=== PATIENT | female | born 1990 | race Caucasian/White ===

== ENCOUNTER 2016-11-16 09:37 | Inpatient (IN) | payer OTHER ==
[2016-11-16] MEDS ORDERED: IBUPROFEN 800 MG TAB PO STA (10:00)
[2016-11-16] MEDS ORDERED: ACETAMINOPHEN TAB 500 MG TAB PO STA (10:00)
[2016-11-16] MEDS ORDERED: IPRATROPIUM-ALBUTEROL 3 ML NEB INHALATION STA (10:01)
[2016-11-16] MEDS ORDERED: methylPREDNISolone SOD SUCCI 125 MG/2 ML VIAL IV STA (10:01)
--- NOTE | 2016-11-16 10:16 | ED ---
Fever HPI - General Source: patient Mode of arrival: ambulatory Limitations: no limitations <Xavier Merlos - Last Filed: 11/16/16 12:25> <Erik Velasco - Last Filed: 11/16/16 12:37> - General Chief Complaint: Fever Stated Complaint: fever Time Seen by Provider: 11/16/16 09:52 - History of Present Illness Initial Comments: 26-year-old female patient presents to emergency department for evaluation after having a fever since Saturday. Reports fever as high as 104.2F at home. Patient states that she does have have a cough, but denies any nasal congestion , nasal discharge, or sore throat. Patient did see her physician on Saturday and was given a prescription for amoxicillin which she has been taking as prescribed. Patient reports shortness of breath with activity and with coughing episodes. Patient denies any sputum production. Patient denies any chest pain, back pain, dizziness, weakness, abdominal pain, nausea, vomiting, constipation, diarrhea, hematuria, dysuria, incontinence, frequency or urgency to urinate. Patient does take control pill, denies any sexual activity. Patient denies any recent travel. (Xavier Merlos) - Related Data Home Medications Medication Instructions Recorded Confirmed Amoxic-Pot Clav 500-125 mg 1 tab PO Q12HR 11/16/16 11/16/16 [Augmentin 500-125 mg] Control (Unknown) 1 tab PO DAILY 11/16/16 11/16/16 Promethaz-Cod 6.25-10 mg/5 ml 5 ml PO Q8H PRN 11/16/16 11/16/16 [Phenergan with Codeine] Allergies Allergy/AdvReac Type Severity Reaction Status Date / Time wheat Allergy Rash/Hives Verified 11/16/16 10:43 lactose AdvReac Nausea & Verified 11/16/16 10:43 Vomiting & Diarrhea Review of Systems ROS Other: All systems not noted in ROS Statement are negative. <Xavier Merlos - Last Filed: 11/16/16 12:25> ROS Other: All systems not noted in ROS Statement are negative. <Erik Velasco - Last Filed: 11/16/16 12:37> ROS Statement: Those systems with pertinent positive or pertinent negative responses have been documented in the HPI. Past Medical History Past Medical History: Asthma History of Any Multi-Drug Resistant Organisms: MRSA Date of last positivie culture/infection: 2007 MDRO Source:: r leg Past Surgical History: No Surgical Hx Reported Past Psychological History: No Psychological Hx Reported Smoking Status: Current every day smoker Past Alcohol Use History: None Reported Past Drug Use History: None Reported <ChelitaXavier Carrera - Last Filed: 11/16/16 12:25> General Exam Limitations: no limitations General appearance: alert, in no apparent distress Head exam: Present: atraumatic, normocephalic, normal inspection Eye exam: Present: normal appearance, PERRL, EOMI. Absent: scleral icterus, conjunctival injection, periorbital swelling ENT exam: Present: normal exam, normal oropharynx, mucous membranes moist, TM's normal bilaterally. Absent: mucous membranes dry Neck exam: Present: normal inspection. Absent: tenderness, meningismus, lymphadenopathy Respiratory exam: Present: normal lung sounds bilaterally, wheezes (Faint expiratory in all arita). Absent: respiratory distress, rales, rhonchi, stridor Cardiovascular Exam: Present: normal rhythm, tachycardia, normal heart sounds. Absent: regular rate, rubs, gallop, clicks GI/Abdominal exam: Present: soft, normal bowel sounds. Absent: distended, tenderness, guarding, rebound, rigid Extremities exam: Present: normal inspection, full ROM, normal capillary refill. Absent: tenderness, pedal edema, joint swelling, calf tenderness Back exam: Present: normal inspection. Absent: CVA tenderness (R), CVA tenderness (L) Neurological exam: Present: alert, oriented X3, CN II-XII intact Psychiatric exam: Present: normal affect, normal mood Skin exam: Present: warm, dry, intact, normal color. Absent: rash <Xavier Merlos - Last Filed: 11/16/16 12:25> General appearance: alert, in no apparent distress, anxious, obese Head exam: Present: atraumatic, normocephalic, normal inspection Eye exam: Present: normal appearance, PERRL, EOMI. Absent: scleral icterus, conjunctival injection, periorbital swelling ENT exam: Present: normal exam, mucous membranes moist Neck exam: Present: normal inspection. Absent: tenderness, meningismus, lymphadenopathy Respiratory exam: Present: normal lung sounds bilaterally, wheezes, accessory muscle use, decreased breath sounds, prolonged expiratory. Absent: respiratory distress, rales, rhonchi, stridor Cardiovascular Exam: Present: regular rate, normal rhythm, normal heart sounds. Absent: systolic murmur, diastolic murmur, rubs, gallop, clicks GI/Abdominal exam: Present: soft, normal bowel sounds. Absent: distended, tenderness, guarding, rebound, rigid Extremities exam: Present: normal inspection, full ROM, normal capillary refill. Absent: tenderness, pedal edema, joint swelling, calf tenderness Back exam: Present: normal inspection Neurological exam: Present: alert, oriented X3, CN II-XII intact Psychiatric exam: Present: normal affect, normal mood Skin exam: Present: warm, dry, intact, normal color. Absent: rash <Erik Velasco - Last Filed: 11/16/16 12:37> Course <Xavier Merlos - Last Filed: 11/16/16 12:25> <Eirk Velasco - Last Filed: 11/16/16 12:37> Vital Signs 11/16/16 11/16/16 11/16/16 09:43 10:30 10:50 Temperature 102.9 F H Pulse Rate 131 H 98 Respiratory 18 20 20 Rate Blood Pressure 126/76 134/71 O2 Sat by Pulse 91 L 94 L Oximetry 11/16/16 11/16/16 11/16/16 11:04 11:14 12:19 Temperature 99.0 F Pulse Rate 96 96 95 Respiratory 18 Rate Blood Pressure 115/55 O2 Sat by Pulse 96 Oximetry - Reevaluation(s) Reevaluation #1: 11/16/16 12:36 Patient with mild to minimal improvement after breathing treatment (Erik Velasco) Medical Decision Making - Lab Data Result diagrams: 11/16/16 10:40 11/16/16 10:40 <Xavier Merlos - Last Filed: 11/16/16 12:25> - Lab Data Result diagrams: 11/16/16 10:40 11/16/16 10:40 <Erik Velasco - Last Filed: 11/16/16 12:37> - Medical Decision Making 26-year-old here for evaluation of shortness of breath, severe shortness of breath positive pneumonia fever tachycardia history of asthma palpitating history of shortness of breath pulse ox marginal 91% with multilobar pneumonia ( Erik Velasco) - Lab Data Lab Results 11/16/16 11/16/16 11/16/16 Range/Units 10:40 10:40 10:40 WBC 6.5 (3.8-10.6) k/uL RBC 4.92 (3.80-5.40) m/uL Hgb 14.1 (11.4-16.0) gm/dL Hct 42.4 (34.0-46.0) % MCV 86.1 (80.0-100.0) fL MCH 28.7 (25.0-35.0) pg MCHC 33.3 (31.0-37.0) g/dL RDW 13.8 (11.5-15.5) % Plt Count 113 L (150-450) k/uL Neutrophils % 79 % Lymphocytes % 15 % Monocytes % 4 % Eosinophils % 0 % Basophils % 0 % Neutrophils # 5.1 (1.3-7.7) k/uL Lymphocytes # 0.9 L (1.0-4.8) k/uL Monocytes # 0.3 (0-1.0) k/uL Eosinophils # 0.0 (0-0.7) k/uL Basophils # 0.0 (0-0.2) k/uL D-Dimer 0.61 H (<0.60) mg/L FEU Sodium 137 (137-145) mmol/L Potassium 4.4 (3.5-5.1) mmol/L Chloride 103 (98-107) mmol/L Carbon Dioxide 21 L (22-30) mmol/L Anion Gap 13 mmol/L BUN 9 (7-17) mg/dL Creatinine 0.82 (0.52-1.04) mg/dL Est GFR (MDRD) Af Amer >60 (>60 ml/min/1.73 sqM) Est GFR (MDRD) Non-Af >60 (>60 ml/min/1.73 sqM) Glucose 137 H (74-99) mg/dL Plasma Lactic Acid Walt (0.7-2.0) mmol/L Calcium 8.4 (8.4-10.2) mg/dL Total Bilirubin 0.6 (0.2-1.3) mg/dL AST 71 H (14-36) U/L ALT 63 H (9-52) U/L Alkaline Phosphatase 46 (38-126) U/L Total Protein 6.5 (6.3-8.2) g/dL Albumin 3.5 (3.5-5.0) g/dL HCG, Qual Influenza Type A RNA (Not Detectd) Influenza Type B (PCR) (Not Detectd) 11/16/16 11/16/16 11/16/16 Range/Units 10:40 10:40 10:40 WBC (3.8-10.6) k/uL RBC (3.80-5.40) m/uL Hgb (11.4-16.0) gm/dL Hct (34.0-46.0) % MCV (80.0-100.0) fL MCH (25.0-35.0) pg MCHC (31.0-37.0) g/dL RDW (11.5-15.5) % Plt Count (150-450) k/uL Neutrophils % % Lymphocytes % % Monocytes % % Eosinophils % % Basophils % % Neutrophils # (1.3-7.7) k/uL Lymphocytes # (1.0-4.8) k/uL Monocytes # (0-1.0) k/uL Eosinophils # (0-0.7) k/uL Basophils # (0-0.2) k/uL D-Dimer (<0.60) mg/L FEU Sodium (137-145) mmol/L Potassium (3.5-5.1) mmol/L Chloride (98-107) mmol/L Carbon Dioxide (22-30) mmol/L Anion Gap mmol/L BUN (7-17) mg/dL Creatinine (0.52-1.04) mg/dL Est GFR (MDRD) Af Amer (>60 ml/min/1.73 sqM) Est GFR (MDRD) Non-Af (>60 ml/min/1.73 sqM) Glucose (74-99) mg/dL Plasma Lactic Acid Walt 0.8 (0.7-2.0) mmol/L Calcium (8.4-10.2) mg/dL Total Bilirubin (0.2-1.3) mg/dL AST (14-36) U/L ALT (9-52) U/L Alkaline Phosphatase (38-126) U/L Total Protein (6.3-8.2) g/dL Albumin (3.5-5.0) g/dL HCG, Qual Not Detected Influenza Type A RNA Not Detected (Not Detectd) Influenza Type B (PCR) Not Detected (Not Detectd) Disposition Time of Disposition: 12:26 <Xavier Merlos - Last Filed: 11/16/16 12:25> <Erik Velasco - Last Filed: 11/16/16 12:37> Clinical Impression: Multifocal pneumonia Disposition: ADMITTED IP TO THIS HOSP Condition: Fair Referrals: Ruthy Bundy MD [Primary Care Provider] - 1-2 days
--- NOTE | 2016-11-16 10:33 | XR ---
EXAMINATION TYPE: XR chest 2V DATE OF EXAM: 11/16/2016 10:20 AM COMPARISON: Prior exam one January 2016 HISTORY: Cough TECHNIQUE: Frontal and lateral views of the chest are obtained. FINDINGS: Multifocal airspace disease present. Cardiomediastinal silhouette, pulmonary vascularity a nd nelson are stable. No pneumothorax or pleural effusion. IMPRESSION: Findings may represent bilobar arch right lobar pneumonia, follow-up to resolution.
[2016-11-16] MEDS ORDERED: SODIUM CHLORIDE 0.9% 1,000 ML IV ONE (10:43)
[2016-11-16] MEDS ORDERED: AZITHROMYCIN 500 MG in SODIUM CHLORIDE 0.9% 250 ML IVPB STA (10:44)
[2016-11-16 10:57] LABS: Basophils % (A) 0 %; CH 28.9; CHCM 33.7; Eosinophils % (A) 0 %; HCT 42.4 % (34.0-46.0); HGB 14.1 gm/dL (11.4-16.0); Luc # (Auto) 0.11; Luc % (Auto) 2; Lymphocytes # (A) 0.9 k/uL (1.0-4.8); Lymphocytes % (A) 15 %; MCH 28.7 pg (25.0-35.0); MCHC 33.3 g/dL (31.0-37.0); MCV 86.1 fL (80.0-100.0); Mean Platelet Volume 7.6; Monocytes # (A) 0.3 k/uL (0-1.0); Monocytes % (A) 4 %; Neutrophils # (A) 5.1 k/uL (1.3-7.7); Neutrophils % (A) 79 %; RBC 4.92 m/uL (3.80-5.40); RDW 13.8 % (11.5-15.5); WBC 6.5 k/uL (3.8-10.6); WBC (Perox) 6.66
[2016-11-16 11:11] LABS: Anion Gap 13 mmol/L; Calcium 8.4 mg/dL (8.4-10.2); Carbon Dioxide 21 mmol/L (22-30); Chloride 103 mmol/L (98-107); Glucose 137 mg/dL (74-99); Non-African American GFR(MDRD) >60 (>60 ml/min/1.73 sqM); Sodium 137 mmol/L (137-145); Total Bilirubin 0.6 mg/dL (0.2-1.3); Total Protein 6.5 g/dL (6.3-8.2)
[2016-11-16 11:14] LABS: ALT 63 U/L (9-52); AST 71 U/L (14-36); Alkaline Phosphatase 46 U/L (38-126); Blood Urea Nitrogen 9 mg/dL (7-17); Potassium 4.4 mmol/L (3.5-5.1)
[2016-11-16] MEDS ORDERED: RX INFO: IV CONTRAST WAS GIVEN 1 EACH MISC MISCELLANE PRN ×2 (11:38→11:39)
[2016-11-16] MEDS: SODIUM CHLORIDE 0.9% 1,000 ML IV SCH ×2 (12:21→17:15)
--- NOTE | 2016-11-16 12:22 | CT ---
EXAMINATION TYPE: CT angio chest DATE OF EXAM: 11/16/2016 12:13 PM COMPARISON: Chest x-ray from earlier today. HISTORY: Fever and pain. CT DLP: 886.4 mGycm. Automated Exposure Control for Dose Reduction was Utilized. CONTRAST: CTA scan of the thorax is performed with IV Contrast, patient injected with 100 mL of Omnipaque 350, pulmonary embolism protocol. MIP Images are created on CT scanner and reviewed. FINDINGS: LUNGS: There is groundglass opacification with some irregular consolidation in the right upper lobe w ith additional multifocal areas of similar appearance in the left upper lobe as well as involving the lingula. There is more dense consolidation with air bronchograms medially in the left lower lobe. Th ere is more patchy reticulonodular infiltrates in the central right lower lobe. No pleural effusion o r pneumothorax is present bilaterally. MEDIASTINUM: There is suboptimal bolus with heterogeneity beginning in the distal right and left pulm onary arteries. There is no large central pulmonary embolism. Smaller segmental and subsegmental PE c annot be excluded by this exam but is likely negative. There are no greater than 1 cm hilar or media stinal lymph nodes. No cardiomegaly or pericardial effusion is seen. OTHER: Liver is diffusely low dense consistent with fatty infiltration. There is mild multilevel spur ring in the mid to lower thoracic spine. IMPRESSION: 1. Suboptimal study without large central pulmonary embolism. Smaller peripheral PE cannot be entirel y excluded on this exam though is likely negative. 2. Multifocal abnormal areas correlate with recent chest x-ray strongly suggestive of multifocal pneu monia more prominent in the left lung versus right lung. Clinical correlation advised.
[2016-11-16] MEDS ORDERED: PNEUMONIA PROTOCOL UTILIZED 1 EACH MISC PO PRN (12:27)
[2016-11-16] MEDS ORDERED: ACETAMINOPHEN TAB 500 MG TAB PO PRN (12:29)
--- NOTE | 2016-11-16 15:07 | P.HPIM ---
History of Present Illness H&P Date: 11/16/16 Chief Complaint: fever and cough patient is a 26-year-old female who presented to [facility] emergency room was a chief complaint of fever and cough. Patient reports fever as high as 104.2 she was seen by her primary care physician as outpatient 4 days ago and was given a prescription for amoxicillin which she has been taking however of she was having worsening shortness of breath and worsening cough episodes she decided to come to emergency room. Chest x-ray on presentation was significant for multifocal infiltrate suggestive of pneumonia, d-dimer was slightly elevated CT angiogram of the chest was done and was negative for any evidence of the large of pulmonary embolism. Preliminary diagnosis is pneumonia patient was started on IV Rocephin and IV Zithromax, sputum culture was requested. Patient also has known history of asthma she was started on IV Solu-Medrol and inhaled bronchodilators Pulmonary consultation was requested. Past Medical History Past Medical History: Asthma Additional Past Medical History / Comment(s): Gestational Diabetes History of Any Multi-Drug Resistant Organisms: MRSA Date of last positivie culture/infection: 2007 MDRO Source:: r leg Past Surgical History: Section Additional Past Surgical History / Comment(s): Third Molar Removal Past Anesthesia/Blood Transfusion Reactions: No Reported Reaction Past Psychological History: ADD/ADHD Smoking Status: Former smoker Past Alcohol Use History: None Reported Past Drug Use History: None Reported - Past Family History Mother Family Medical History: Diabetes Mellitus Sister(s) Additional Family Medical History / Comment(s): Heart Murmur Medications and Allergies Home Medications Medication Instructions Recorded Confirmed Type Amoxic-Pot Clav 500-125 mg 1 tab PO Q12HR 11/16/16 11/16/16 History [Augmentin 500-125 mg] Control (Unknown) 1 tab PO DAILY 11/16/16 11/16/16 History Promethaz-Cod 6.25-10 mg/5 ml 5 ml PO Q8H PRN 11/16/16 11/16/16 History [Phenergan with Codeine] Allergies Allergy/AdvReac Type Severity Reaction Status Date / Time wheat Allergy Rash/Hives Verified 11/16/16 10:43 lactose AdvReac Nausea & Verified 11/16/16 10:43 Vomiting & Diarrhea Physical Exam Vitals: Vital Signs Temp Pulse Pulse Resp BP BP Pulse Ox 11/16/16 14:12 98.1 F 92 18 103/56 95 11/16/16 13:47 98.6 F 109 H 18 106/58 96 Intake and Output 11/16/16 11/16/16 11/16/16 06:59 14:59 22:59 Other: Weight 157.652 kg Patient Weight 11/17/16 06:59 Weight 157.652 kg in general patient is alert and oriented 3 in no apparent distress HEENT head normocephalic and traumatic Neck is supple no JVD no goiter no lymphadenopathy Chest exam reveals scattered crackles in both lung arita with prolonged expiratory phase and wheezing Cardiac exam reveals regular heart sounds S1 and S2 no gallops no murmurs Abdomen is soft nontender no organomegaly Extremity exam reveals no edema no cyanosis or clubbing Results CBC & Chem 7: 11/16/16 10:40 11/16/16 10:40 Thrombosis Risk Factor Assmnt - Choose All That Apply Each Factor Represents 1 point: Obesity (BMI >25), Oral contraceptives or hormone replacement therapy, Serious lung disease incl. pneumonia (< 1month) Thrombosis Risk Factor Assessment Total Risk Factor Score: 3 Thrombosis Risk Factor Assessment Level: Moderate Risk Assessment and Plan Plan: #1 multifocal pneumonia #2 acute exacerbation of asthma #3 febrile illness related to #1 #4 elevated d-dimer was negative computed tomography scan for pulmonary embolism #5 borderline diabetes mellitus her recent A1c was 6.4 #6 morbid obesity At this time plan is to continue his IV antibiotic Rocephin and Zithromax continue with IV Solu-Medrol and inhaled bronchodilators Check sputum culture and Gram stain Will follow closely
[2016-11-16] MEDS: IPRATROPIUM-ALBUTEROL 3 ML NEB INHALATION SCH ×2 (15:45→21:34)
[2016-11-16 15:48] LABS: Hemoglobin A1C 6.2 % (4.2-6.1)
[2016-11-16] MEDS ORDERED: IV VANCOMYCIN PER PHARMACY 1 EACH MISC MISCELLANE PRN (16:10)
--- NOTE | 2016-11-16 16:40 | P.CNPUL ---
History of Present Illness Consult date: 11/16/16 Requesting physician: Palmer Pinzon Reason for consult: dyspnea, abnormal CXR/CT (Multifocal pneumonia) Chief complaint: Shortness of breath, cough congestion History of present illness: This is a very pleasant 26-year-old female patient who follows with Dr. Bundy as her primary care physician. She has a history of very mild intermittent asthma not currently on any inhalers, obesity, previous MRSA infection of a right leg wound in 2007. She does have chronic and ongoing tobacco dependence. She is also 16 month post . She is currently on control pills. Approximately 5 days ago she woke up feeling short of breath with cough and congestion. She was seen the following day at her PCPs office and was initiated on Augmentin and Robitussin. She did not improve and presented to the emergency room today with continued complaints of fever cough and congestion stating her temperature was as high as 104.2 at home. Her influenza screen is negative, hCG negative lactic acid 0.8, no leukocytosis. There is minimal elevation in her liver function testing with an AST of 71, ALT 63. Her d-dimer was 0.61. Her chest x-ray showed multilobar pneumonia bilaterally. CT angiogram ruled out pulmonary embolism and the large central pulmonary arteries however it was a suboptimal study and smaller PEs could not be completely excluded. There was fatty infiltration of the liver. There was noted multifocal abnormalities suggestive of multifocal pneumonia more prominent in the left lung versus the right. We're consulted for the same. She denies any recent travels, no noted exposures. She states she was in her normal state of health prior to this episode. She denies any productive cough, no hemoptysis. No recent weight loss. Review of Systems 14 point review of system was conducted. All negative other than as mentioned in the HPI. Past Medical History Past Medical History: Asthma Additional Past Medical History / Comment(s): Gestational Diabetes History of Any Multi-Drug Resistant Organisms: MRSA Date of last positivie culture/infection: 2007 MDRO Source:: r leg Past Surgical History: Section Additional Past Surgical History / Comment(s): Third Molar Removal Past Anesthesia/Blood Transfusion Reactions: No Reported Reaction Past Psychological History: ADD/ADHD Smoking Status: Former smoker Past Alcohol Use History: None Reported Past Drug Use History: None Reported - Past Family History Mother Family Medical History: Diabetes Mellitus Sister(s) Additional Family Medical History / Comment(s): Heart Murmur Medications and Allergies Home Medications Medication Instructions Recorded Confirmed Type Amoxic-Pot Clav 500-125 mg 1 tab PO Q12HR 11/16/16 11/16/16 History [Augmentin 500-125 mg] Control (Unknown) 1 tab PO DAILY 11/16/16 11/16/16 History Promethaz-Cod 6.25-10 mg/5 ml 5 ml PO Q8H PRN 11/16/16 11/16/16 History [Phenergan with Codeine] Allergies Allergy/AdvReac Type Severity Reaction Status Date / Time wheat Allergy Rash/Hives Verified 11/16/16 10:43 lactose AdvReac Nausea & Verified 11/16/16 10:43 Vomiting & Diarrhea Physical Exam Vitals: Vital Signs Temp Pulse Pulse Resp BP BP Pulse Ox 11/16/16 15:55 97 11/16/16 15:46 97 97 11/16/16 15:05 95 11/16/16 14:12 98.1 F 92 18 103/56 95 11/16/16 13:47 98.6 F 109 H 18 106/58 96 Intake and Output 11/16/16 11/16/16 11/16/16 06:59 14:59 22:59 Other: # Voids 1 Weight 157.652 kg Patient Weight 11/17/16 06:59 Weight 157.652 kg GENERAL EXAM: Morbidly obese. Alert, comfortable in no apparent distress. HEAD: Normocephalic. EYES: Normal reaction of pupils, equal size. NOSE: Clear with pink turbinates. THROAT: No erythema or exudates. NECK: No masses, no JVD. CHEST: No chest wall deformity. LUNGS: Equal air entry with faint end expiratory wheeze, few scattered rhonchi.. CVS: S1 and S2 normal with no audible murmurs, regular rhythm. ABDOMEN: No hepatosplenomegaly, normal bowel sounds, no guarding or rigidity. SPINE: No scoliosis or deformity SKIN: No rashes CENTRAL NERVOUS SYSTEM: No focal deficits, tone is normal in all 4 extremities. Extremities: There is no significant peripheral edema. No clubbing, no cyanosis. Peripheral pulses are intact. Results - Laboratory Findings CBC and BMP: 11/16/16 10:40 11/16/16 10:40 PT/INR, D-dimer D-Dimer 0.61 mg/L FEU (<0.60) H 11/16/16 10:40 - Diagnostic Findings Chest x-ray: image reviewed CT scan - chest: image reviewed Assessment and Plan Plan: Impression: #1 Multifocal pneumonia bilaterally more so on the left suspect community- acquired. #2 Acute exacerbation of mild intermittent bronchial asthma secondary to above. #3 Chronic and ongoing tobacco dependence. #4 Morbid obesity. #5 Utilizes control pills. Plan: The patient was seen and evaluated by Dr. Begum. Her chest x-ray and CAT scans were reviewed. We'll change her antibiotics and discontinue the Rocephin and azithromycin and initiate vancomycin and Levaquin. We'll back off on her steroids to 40 mg every 8 hours. We'll continue with bronchodilators. We will repeat her chest x-ray in the a.m. Currently her clinical appearance is much more stable than her x-ray/CT would suggest. We'll continue to monitor her closely. We'll continue to follow and make further recommendations based on her clinical status. Time with Patient: Greater than 30
[2016-11-16] MEDS: VANCOMYCIN 2,250 MG in SODIUM CHLORIDE 0.9% 500 ML IVPB SCH (17:21)
[2016-11-16] MEDS: LEVOFLOXACIN 750 MG TAB PO SCH (17:21)
[2016-11-16 17:35] LABS: Glucose,Whole Blood 151 mg/dL (75-99)
[2016-11-16] MEDS: INSULIN LISPRO (humaLOG) 300 UNIT/3 ML VIAL SQ SCH ×2 (17:38→22:06)
[2016-11-16] MEDS ORDERED: methylPREDNISolone SOD SUCCI 125 MG/2 ML VIAL IV SCH (18:00)
[2016-11-16 21:06] LABS: Glucose,Whole Blood 182 mg/dL (75-99)
[2016-11-17] MEDS: methylPREDNISolone SOD SUCCI 40 MG/ML 1 ML VIAL IV SCH ×4 (00:32→23:19)
[2016-11-17] MEDS: VANCOMYCIN 2,250 MG in SODIUM CHLORIDE 0.9% 500 ML IVPB SCH ×4 (00:32→23:19)
[2016-11-17] MEDS: IBUPROFEN 800 MG TAB PO PRN ×2 (01:18→23:19)
[2016-11-17 07:30] LABS: Glucose,Whole Blood 165 mg/dL (75-99)
[2016-11-17] MEDS: INSULIN LISPRO (humaLOG) 300 UNIT/3 ML VIAL SQ SCH ×4 (08:19→22:00)
[2016-11-17] MEDS ORDERED: AZITHROMYCIN 500 MG TAB PO SCH (09:00)
--- NOTE | 2016-11-17 10:14 | P.PN ---
Subjective 26-year-old female being seen on rounds. Currently sitting up in a chair. Patient states she slept well last night but she needed to sleep in a recliner. Patient stated that she did not cough last night but continues to report having lower back discomfort. Patients being followed by pulmonology service for multifocal infiltrate suggestive of pneumonia Bilaterally more so on the left suspect community- acquired D-dimer was slightly elevated and the CAT scan of the chest was negative for any evidence of a large pulmonary emboli. Patient does have a history of asthma currently being treated for an acute exacerbation of mild intermittent bronchial asthma secondary to multifocal bilateral pneumonia Objective - Vital Signs Vital signs: Vital Signs Temp 97.1 F L 11/17/16 07:30 Pulse 70 11/17/16 07:30 Resp 20 11/17/16 08:00 BP 115/83 11/16/16 20:31 Pulse Ox 94 L 11/17/16 07:30 Intake & Output 11/16/16 11/17/16 11/17/16 18:59 06:59 18:59 Output Total 600 375 Balance -600 -375 Weight 157.652 kg Output: Urine 600 375 Other: # Voids 1 1 - Exam Physical exam 26-year-old female sitting up in a chair appears in no acute distress states less short of breath Lungs diminished at the bases otherwise adequate air movement not able to appreciate any wheezing no cough noted Heart S1-S2 audible regular Abdomen obese soft nontender reports no nausea vomiting Extremities no calf tenderness no edema noted - Labs CBC & Chem 7: 11/16/16 10:40 11/16/16 10:40 Labs: Abnormal Lab Results - Last 24 Hours (Table) 11/16/16 11/16/16 11/17/16 Range/Units 17:33 21:01 07:23 POC Glucose (mg/dL) 151 H 182 H 165 H (75-99) mg/dL Microbiology - Last 24 Hours (Table) 11/16/16 19:00 Gram Stain - Preliminary Sputum Sputum Culture - Preliminary Assessment and Plan Plan: Impression present on admission shortness of breath suspect due to multifocal pneumonia bilaterally more on the left suspect community-acquired Acute exacerbation of mild intermittent bronchial asthma likely due to multifocal pneumonia Morbid obesity BMI 56 Chronic and ongoing tobacco dependency Present on admission febrile related to multifocal pneumonia likely community- acquired Elevated d-dimer negative CAT scan of the chest for pulmonary emboli Borderline diabetes recent A1 C 6.4 Plan Continue recommendations by pulmonology service DVT and GI prophylaxis Continue current aerosol bronchodilators Continue Levaquin and vancomycin as ordered Continue Solu-Medrol 40 IV every 8 Further recommendations pending The above dictated assessment and findings were discussed with dr rasmussen . Impression and the plan of care have been dictated as directed. Geni Lei nurse practitioner acting as a scribe for dr rasmussen
--- NOTE | 2016-11-17 11:00 | P.PN ---
Subjective Principal diagnosis: Acute bilateral multifocal pneumonia This is a very pleasant 26-year-old female patient who follows with Dr. Bundy as her primary care physician. She has a history of very mild intermittent asthma not currently on any inhalers, obesity, previous MRSA infection of a right leg wound in 2007. She does have chronic and ongoing tobacco dependence. She is also 16 month post . She is currently on control pills. Approximately 5 days ago she woke up feeling short of breath with cough and congestion. She was seen the following day at her PCPs office and was initiated on Augmentin and Robitussin. She did not improve and presented to the emergency room today with continued complaints of fever cough and congestion stating her temperature was as high as 104.2 at home. Her influenza screen is negative, hCG negative lactic acid 0.8, no leukocytosis. There is minimal elevation in her liver function testing with an AST of 71, ALT 63. Her d-dimer was 0.61. Her chest x-ray showed multilobar pneumonia bilaterally. CT angiogram ruled out pulmonary embolism and the large central pulmonary arteries however it was a suboptimal study and smaller PEs could not be completely excluded. There was fatty infiltration of the liver. There was noted multifocal abnormalities suggestive of multifocal pneumonia more prominent in the left lung versus the right. We're consulted for the same. She denies any recent travels, no noted exposures. She states she was in her normal state of health prior to this episode. She denies any productive cough, no hemoptysis. No recent weight loss. Patient was reevaluated today on 11/17/2016, she seems to be doing better, breathing easier, no cough no wheezing no shortness of breath. She did have a T -max of 102 yesterday, today her temp is 97.1. O2 saturation is 94% on room air , patient is not in any distress. Labs from yesterday were reviewed, and her WBC count is 6.5. Objective - Vital Signs Vital signs: Vital Signs Temp 97.1 F L 11/17/16 07:30 Pulse 70 11/17/16 07:30 Resp 20 11/17/16 08:00 BP 115/83 11/16/16 20:31 Pulse Ox 94 L 11/17/16 07:30 Intake & Output 11/16/16 11/17/16 11/17/16 18:59 06:59 18:59 Output Total 600 375 Balance -600 -375 Weight 157.652 kg Output: Urine 600 375 Other: # Voids 1 1 - Exam GENERAL EXAM: Morbidly obese. Alert, comfortable in no apparent distress. HEAD: Normocephalic. EYES: Normal reaction of pupils, equal size. NOSE: Clear with pink turbinates. THROAT: No erythema or exudates. NECK: No masses, no JVD. CHEST: No chest wall deformity. LUNGS: Equal air entry with faint end expiratory wheeze, few scattered rhonchi.. CVS: S1 and S2 normal with no audible murmurs, regular rhythm. ABDOMEN: No hepatosplenomegaly, normal bowel sounds, no guarding or rigidity. SPINE: No scoliosis or deformity SKIN: No rashes CENTRAL NERVOUS SYSTEM: No focal deficits, tone is normal in all 4 extremities. Extremities: There is no significant peripheral edema. No clubbing, no cyanosis. Peripheral pulses are intact. - Labs CBC & Chem 7: 11/16/16 10:40 11/16/16 10:40 Labs: Abnormal Lab Results - Last 24 Hours (Table) 11/16/16 11/16/16 11/17/16 Range/Units 17:33 21:01 07:23 POC Glucose (mg/dL) 151 H 182 H 165 H (75-99) mg/dL Microbiology - Last 24 Hours (Table) 11/16/16 19:00 Gram Stain - Preliminary Sputum Sputum Culture - Preliminary Assessment and Plan Plan: #1 Multifocal pneumonia bilaterally more so on the left suspect community- acquired. #2 Acute exacerbation of mild intermittent bronchial asthma secondary to above. #3 Chronic and ongoing tobacco dependence. #4 Morbid obesity. #5 Utilizes control pills. Recommendation: Continue present treatment plan including antibiotics, bronchodilators, patient is on Levaquin and vancomycin for now, this will be addressed depending on any positive cultures if become available. Repeat chest x-ray on Saturday, and consider discharge planning on Saturday. Time with Patient: Less than 30
--- NOTE | 2016-11-17 11:17 | XR ---
EXAMINATION TYPE: XR chest 2V DATE OF EXAM: 11/17/2016 10:59 AM HISTORY: pneumonia. REFERENCE: Previous study dated 11/16/2016. FINDINGS: There continues to be airspace disease in the left and right upper lobes. This has partiall y cleared. Heart size is upper limits of normal. No definite pleural fluid is seen. IMPRESSION: PARTIAL RESOLUTION OF THE PATIENT'S BILATERAL INFILTRATES. FURTHER FOLLOW-UP IS RECOMMENDED.
[2016-11-17] MEDS: IPRATROPIUM-ALBUTEROL 3 ML NEB INHALATION SCH ×4 (11:24→19:21)
[2016-11-17] MEDS: HEPARIN SODIUM,PORCINE 5,000 UNIT/ML 1 ML VIAL SQ SCH ×3 (12:14→23:19)
[2016-11-17 12:17] LABS: Glucose,Whole Blood 226 mg/dL (75-99)
[2016-11-17] MEDS: SODIUM CHLORIDE 0.9% 1,000 ML IV SCH ×2 (12:29→23:27)
[2016-11-17] MEDS ORDERED: VANCOMYCIN TROUGH DUE 1 EACH MISC MISCELLANE ONE (15:00)
[2016-11-17 17:03] LABS: Glucose,Whole Blood 344 mg/dL (75-99)
[2016-11-17] MEDS ORDERED: INSULIN LISPRO (humaLOG) 300 UNIT/3 ML VIAL SQ ONE (17:18)
[2016-11-17] MEDS: LEVOFLOXACIN 750 MG TAB PO SCH (18:32)
[2016-11-17 21:22] LABS: Glucose,Whole Blood 269 mg/dL (75-99)
[2016-11-17] MEDS: FAMOTIDINE 20 MG TAB PO SCH (21:23)
[2016-11-18] MEDS: SODIUM CHLORIDE 0.9% 1,000 ML IV SCH ×3 (03:05→23:33)
[2016-11-18 07:48] LABS: Glucose,Whole Blood 224 mg/dL (75-99)
[2016-11-18] MEDS: VANCOMYCIN 2,250 MG in SODIUM CHLORIDE 0.9% 500 ML IVPB SCH ×3 (08:37→23:32)
[2016-11-18] MEDS: methylPREDNISolone SOD SUCCI 40 MG/ML 1 ML VIAL IV SCH ×2 (08:42→22:01)
[2016-11-18] MEDS: HEPARIN SODIUM,PORCINE 5,000 UNIT/ML 1 ML VIAL SQ SCH ×3 (08:45→23:33)
[2016-11-18] MEDS: INSULIN LISPRO (humaLOG) 300 UNIT/3 ML VIAL SQ SCH ×4 (08:47→22:05)
[2016-11-18] MEDS: IPRATROPIUM-ALBUTEROL 3 ML NEB INHALATION SCH ×4 (08:49→19:58)
--- NOTE | 2016-11-18 10:36 | P.PN ---
Subjective 26-year-old female being seen this morning sitting up in a chair states breathing feels improved currently is on room air. Patient states that she was able to sleep last night in the bed laying flat less short of breath did note the temp this morning is 97.4 did run a temp of 100.1 at 11:00 last night patients being followed by pulmonology being treated for acute bilateral multifocal pneumonia. Patient did have a CAT scan of the chest ruled out for evidence of a pulmonary emboli Objective - Vital Signs Vital signs: Vital Signs Temp 97.4 F L 11/18/16 07:35 Pulse 96 11/18/16 09:04 Resp 20 11/18/16 07:35 BP 126/69 11/18/16 07:35 Pulse Ox 92 L 11/18/16 07:35 Intake & Output 11/17/16 11/18/16 11/18/16 18:59 06:59 18:59 Intake Total 300 Output Total 775 Balance -475 Intake: Oral 300 Output: Urine 775 Other: # Voids 1 1 1 # Bowel Movements 1 - Exam Physical exam 26-year-old female sitting up in a chair states breathing feels slightly improved this morning able to sleep flat in the bed last night Lungs adequate air movement bilaterally not able to appreciate any wheezing no conversational dyspnea noted no cough noted on room air sats are 92% Heart S1-S2 audible and regular denying chest pain Abdomen obese soft nondistended nontender bowel tones present Extremities no edema noted - Labs CBC & Chem 7: 11/16/16 10:40 11/16/16 10:40 Labs: Abnormal Lab Results - Last 24 Hours (Table) 11/17/16 11/17/16 11/17/16 Range/Units 12:08 16:56 21:21 POC Glucose (mg/dL) 226 H 344 H 269 H (75-99) mg/dL 11/18/16 Range/Units 07:40 POC Glucose (mg/dL) 224 H (75-99) mg/dL Assessment and Plan Plan: Impression present on admission shortness of breath suspect due to multifocal pneumonia bilaterally more on the left suspect community-acquired Acute exacerbation of mild intermittent bronchial asthma likely due to multifocal pneumonia Morbid obesity BMI 56 Chronic and ongoing tobacco dependency Present on admission febrile related to multifocal pneumonia likely community- acquired Elevated d-dimer negative CAT scan of the chest for pulmonary emboli Borderline diabetes recent A1 C 6.4 Plan Continue recommendations by pulmonology service DVT and GI prophylaxis Continue current aerosol bronchodilators Continue Levaquin and vancomycin as ordered Continue Solu-Medrol 40 IV every 8 Further recommendations pending The above dictated assessment and findings were discussed with dr arsmussen . Impression and the plan of care have been dictated as directed. Geni Lei nurse practitioner acting as a scribe for dr rasmussen
--- NOTE | 2016-11-18 11:19 | P.PN ---
Subjective Principal diagnosis: Acute bilateral multifocal pneumonia This is a very pleasant 26-year-old female patient who follows with Dr. Bundy as her primary care physician. She has a history of very mild intermittent asthma not currently on any inhalers, obesity, previous MRSA infection of a right leg wound in 2007. She does have chronic and ongoing tobacco dependence. She is also 16 month post . She is currently on control pills. Approximately 5 days ago she woke up feeling short of breath with cough and congestion. She was seen the following day at her PCPs office and was initiated on Augmentin and Robitussin. She did not improve and presented to the emergency room today with continued complaints of fever cough and congestion stating her temperature was as high as 104.2 at home. Her influenza screen is negative, hCG negative lactic acid 0.8, no leukocytosis. There is minimal elevation in her liver function testing with an AST of 71, ALT 63. Her d-dimer was 0.61. Her chest x-ray showed multilobar pneumonia bilaterally. CT angiogram ruled out pulmonary embolism and the large central pulmonary arteries however it was a suboptimal study and smaller PEs could not be completely excluded. There was fatty infiltration of the liver. There was noted multifocal abnormalities suggestive of multifocal pneumonia more prominent in the left lung versus the right. We're consulted for the same. She denies any recent travels, no noted exposures. She states she was in her normal state of health prior to this episode. She denies any productive cough, no hemoptysis. No recent weight loss. Patient was reevaluated today on 11/17/2016, she seems to be doing better, breathing easier, no cough no wheezing no shortness of breath. She did have a T -max of 102 yesterday, today her temp is 97.1. O2 saturation is 94% on room air , patient is not in any distress. Labs from yesterday were reviewed, and her WBC count is 6.5. Patient was reevaluated today on 11/18/2016, has a bit of a cough and wheezing, improving clinically based on how she presented initially. Chest x-ray from yesterday's showed slight improvement and better aeration seems to be going into the right upper lobe. Her left upper lobe and left lower lobe remain about the same. Patient has no fever no chills no hemoptysis no chest pain, she does have occasional wheezing. I recommended a follow-up chest x-ray in a.m., and if continues to show improvement patient could be considered for discharge planning in the next 24 hours Objective - Vital Signs Vital signs: Vital Signs Temp 97.4 F L 11/18/16 07:35 Pulse 96 11/18/16 09:04 Resp 20 11/18/16 07:35 BP 126/69 11/18/16 07:35 Pulse Ox 92 L 11/18/16 07:35 Intake & Output 11/17/16 11/18/16 11/18/16 18:59 06:59 18:59 Intake Total 300 Output Total 775 Balance -475 Intake: Oral 300 Output: Urine 775 Other: # Voids 1 1 1 # Bowel Movements 1 - Exam GENERAL EXAM: Morbidly obese. Alert, comfortable in no apparent distress. HEAD: Normocephalic. EYES: Normal reaction of pupils, equal size. NOSE: Clear with pink turbinates. THROAT: No erythema or exudates. NECK: No masses, no JVD. CHEST: No chest wall deformity. LUNGS: Equal air entry with faint end expiratory wheeze, few scattered rhonchi.. CVS: S1 and S2 normal with no audible murmurs, regular rhythm. ABDOMEN: No hepatosplenomegaly, normal bowel sounds, no guarding or rigidity. SPINE: No scoliosis or deformity SKIN: No rashes CENTRAL NERVOUS SYSTEM: No focal deficits, tone is normal in all 4 extremities. Extremities: There is no significant peripheral edema. No clubbing, no cyanosis. Peripheral pulses are intact. - Labs CBC & Chem 7: 11/16/16 10:40 11/16/16 10:40 Labs: Abnormal Lab Results - Last 24 Hours (Table) 11/17/16 11/17/16 11/17/16 Range/Units 12:08 16:56 21:21 POC Glucose (mg/dL) 226 H 344 H 269 H (75-99) mg/dL 11/18/16 Range/Units 07:40 POC Glucose (mg/dL) 224 H (75-99) mg/dL Assessment and Plan Plan: #1 Multifocal pneumonia bilaterally more so on the left suspect community- acquired. #2 Acute exacerbation of mild intermittent bronchial asthma secondary to above. #3 Chronic and ongoing tobacco dependence. #4 Morbid obesity. #5 Utilizes control pills. Recommendation: Continue present treatment plan including antibiotics, bronchodilators, patient is on Levaquin and vancomycin for now, this will be addressed depending on any positive cultures if become available. Repeat chest x-ray on Saturday, and consider discharge planning on Saturday. Time with Patient: Less than 30
[2016-11-18 11:48] LABS: Glucose,Whole Blood 328 mg/dL (75-99)
[2016-11-18] MEDS ORDERED: INSULIN LISPRO (humaLOG) 300 UNIT/3 ML VIAL SQ ONE ×2 (12:58→18:58)
[2016-11-18] MEDS ORDERED: IPRATROPIUM-ALBUTEROL 3 ML NEB INHALATION STA (14:54)
[2016-11-18] MEDS: guaiFENesin 600 MG TABLET.ER PO SCH ×2 (15:11→21:58)
[2016-11-18] MEDS: LEVOFLOXACIN 750 MG TAB PO SCH (16:38)
[2016-11-18 17:31] LABS: Glucose,Whole Blood 294 mg/dL (75-99)
[2016-11-18] MEDS ORDERED: SODIUM CHLORIDE 0.9% 1,000 ML IV ONE (21:37)
[2016-11-18 21:58] LABS: Glucose,Whole Blood 223 mg/dL (75-99)
[2016-11-18] MEDS: FAMOTIDINE 20 MG TAB PO SCH (21:58)
[2016-11-19] MEDS: IPRATROPIUM-ALBUTEROL 3 ML NEB INHALATION SCH ×4 (07:12→19:21)
[2016-11-19 07:25] LABS: Glucose,Whole Blood 196 mg/dL (75-99)
--- NOTE | 2016-11-19 07:49 | XR ---
EXAMINATION TYPE: XR chest 2V DATE OF EXAM: 11/19/2016 7:42 AM HISTORY: pneumonia. REFERENCE: Previous study dated 11/17/2016. FINDINGS: There continues to be a masslike infiltrate in the left lung. Infiltrate on the right appea rs to have resolved. Heart size is upper limits of normal. Pleural spaces are clear. IMPRESSION: CONTINUING LEFT-SIDED INFILTRATE.
[2016-11-19] MEDS: INSULIN LISPRO (humaLOG) 300 UNIT/3 ML VIAL SQ SCH ×4 (08:07→20:39)
[2016-11-19] MEDS: guaiFENesin 600 MG TABLET.ER PO SCH ×2 (08:07→20:28)
[2016-11-19] MEDS: methylPREDNISolone SOD SUCCI 40 MG/ML 1 ML VIAL IV SCH ×2 (08:07→20:28)
[2016-11-19] MEDS: VANCOMYCIN 2,250 MG in SODIUM CHLORIDE 0.9% 500 ML IVPB SCH (08:07)
[2016-11-19] MEDS: HEPARIN SODIUM,PORCINE 5,000 UNIT/ML 1 ML VIAL SQ SCH ×3 (08:07→23:09)
[2016-11-19 09:38] LABS: Anion Gap 9 mmol/L; Blood Urea Nitrogen 11 mg/dL (7-17); Carbon Dioxide 24 mmol/L (22-30); Chloride 108 mmol/L (98-107); Glucose 207 mg/dL (74-99); Non-African American GFR(MDRD) >60 (>60 ml/min/1.73 sqM); Potassium 4.1 mmol/L (3.5-5.1); Sodium 141 mmol/L (137-145)
--- NOTE | 2016-11-19 10:07 | P.PN ---
Subjective Progress note dated 11/19/2016 26-year-old female with a diagnosis of asthma in by bilateral pneumonia. She has a dense consolidation in the left lung. CAT scan was done. There was no obvious pulmonary embolism. Chest x-ray shows still shows a dense consolidation on the left side. The patient is feeling better. Still short of breath. Still wheezing. Probably needs 1 more day here in the hospital. I did tell her that she should follow-up with one is one of us in the office when she is discharged. She does not currently see a manager environmental health and safety. She been seeing Dr. Zamora for last couple of days. Again clinically improved. Less short of breath. Coughing. Not producing much phlegm. No fever no chills. No chest pain. Objective - Vital Signs Vital signs: Vital Signs Temp 99.0 F 11/19/16 07:00 Pulse 96 11/19/16 07:20 Resp 18 11/19/16 07:00 BP 175/85 11/19/16 07:00 Pulse Ox 94 L 11/19/16 07:00 Intake & Output 11/18/16 11/19/16 11/19/16 18:59 06:59 18:59 Intake Total 1150 Balance 1150 Intake: IV 1000 Sodium Chloride 0.9% 1, 1000 000 ml @ 999 mls/hr IV . Q1H1M ONE Rx#:[id number] Oral 150 Other: Voiding Method Toilet # Voids 1 2 # Bowel Movements 1 - Exam No acute distress, oriented 3. Sitting at the bedside of another patient. HEENT examination is grossly unremarkable. Mucous membranes are moist. No oral lesions. Neck supple. Full range of motion. No adenopathy. No thyromegaly. Cardiovascular examination reveals regular rhythm rate. S1-S2 normal. No S3- S4 or murmur. Lungs reveal some mild expiratory wheezes. Breath sounds diminished. Slight prolongation. No crackles. Abdomen soft bowel sounds are heard. Extremities are intact. - Labs CBC & Chem 7: 11/16/16 10:40 11/19/16 08:32 Labs: Abnormal Lab Results - Last 24 Hours (Table) 11/18/16 11/18/16 11/18/16 Range/Units 11:45 17:27 19:11 Chloride (98-107) mmol/L Glucose (74-99) mg/dL POC Glucose (mg/dL) 328 H 294 H (75-99) mg/dL Plasma Lactic Acid Walt 3.0 H* (0.7-2.0) mmol/L Calcium (8.4-10.2) mg/dL 11/18/16 11/19/16 11/19/16 Range/Units 21:56 07:23 08:32 Chloride 108 H (98-107) mmol/L Glucose 207 H (74-99) mg/dL POC Glucose (mg/dL) 223 H 196 H (75-99) mg/dL Plasma Lactic Acid Walt (0.7-2.0) mmol/L Calcium 8.0 L (8.4-10.2) mg/dL Microbiology - Last 24 Hours (Table) 11/16/16 19:00 Gram Stain - Final Sputum Sputum Culture - Final Assessment and Plan (1) Multifocal pneumonia Status: Acute Plan: Assessment and plan Multifocal pneumonia. Asthma exacerbation Ongoing tobacco use Morbid obesity Plan We'll review the medications labs and x-rays. Additional recommendations suggestions are forthcoming. Could be discharged today or tomorrow. I'll allow the primary to make the call. A lot will depend on microbiology. We'll check cultures and results. Time with Patient: Less than 30
[2016-11-19 11:30] VITALS: BMI 56.0
--- NOTE | 2016-11-19 11:33 | P.PN ---
Subjective Patient is doing slightly better today. She is still having shortness of breath with ambulation. Her oxygen level today was 87% on room air with ambulation. Objective - Vital Signs Vital signs: Vital Signs Temp 99.0 F 11/19/16 07:00 Pulse 100 11/19/16 11:03 Resp 18 11/19/16 07:00 BP 175/85 11/19/16 07:00 Pulse Ox 94 L 11/19/16 07:00 Intake & Output 11/18/16 11/19/16 11/19/16 18:59 06:59 18:59 Intake Total 1150 Balance 1150 Weight 157.652 kg Intake: IV 1000 Sodium Chloride 0.9% 1, 1000 000 ml @ 999 mls/hr IV . Q1H1M ONE Rx#:[id number] Oral 150 Other: Voiding Method Toilet # Voids 1 2 1 # Bowel Movements 1 - Exam General: The patient is awake and alert, in no distress Eye: there is normal conjunctiva bilaterally. Neck: The neck is supple, there is no JVD. Cardiovascular: Normal S1-S2, no S3-S4, no murmurs. Respiratory: Lungs with end expiratory wheezing all over the chest Gastrointestinal: Abdomen is soft, nontender Musculoskeletal: There is no pedal edema. Neurological:. Speech is normal. Skin: Skin is warm and dry - Labs CBC & Chem 7: 11/16/16 10:40 11/19/16 08:32 Labs: Abnormal Lab Results - Last 24 Hours (Table) 11/18/16 11/18/16 11/18/16 Range/Units 11:45 17:27 19:11 Chloride (98-107) mmol/L Glucose (74-99) mg/dL POC Glucose (mg/dL) 328 H 294 H (75-99) mg/dL Plasma Lactic Acid Walt 3.0 H* (0.7-2.0) mmol/L Calcium (8.4-10.2) mg/dL 11/18/16 11/19/16 11/19/16 Range/Units 21:56 07:23 08:32 Chloride 108 H (98-107) mmol/L Glucose 207 H (74-99) mg/dL POC Glucose (mg/dL) 223 H 196 H (75-99) mg/dL Plasma Lactic Acid Walt (0.7-2.0) mmol/L Calcium 8.0 L (8.4-10.2) mg/dL Microbiology - Last 24 Hours (Table) 11/16/16 19:00 Gram Stain - Final Sputum Sputum Culture - Final Assessment and Plan Plan: Impression present on admission shortness of breath suspect due to multifocal pneumonia bilaterally more on the left suspect community-acquired Acute exacerbation of mild intermittent bronchial asthma likely due to multifocal pneumonia Morbid obesity BMI 56 Chronic and ongoing tobacco dependency Present on admission febrile related to multifocal pneumonia likely community- acquired Elevated d-dimer negative CAT scan of the chest for pulmonary emboli Pre-diabetes recent A1 C 6.4 Acute hypoxic respiratory failure with O2 sat of 87% on room air with ambulation this morning Plan Continue recommendations by pulmonology service DVT and GI prophylaxis Continue current aerosol bronchodilators Continue Levaquin and vancomycin as ordered Continue Solu-Medrol 40 IV every 12 Encouraged ambulation Recheck oxygen at rest and with ambulation on room air tomorrow Further recommendations pending Plan to discharge home possibly tomorrow
[2016-11-19 12:16] LABS: Glucose,Whole Blood 230 mg/dL (75-99)
[2016-11-19] MEDS: SODIUM CHLORIDE 0.9% 1,000 ML IV SCH ×2 (15:14→20:28)
[2016-11-19 16:41] LABS: Glucose,Whole Blood 215 mg/dL (75-99)
[2016-11-19] MEDS: LEVOFLOXACIN 750 MG TAB PO SCH (17:05)
[2016-11-19] MEDS: SYMBICORT 160-4.5 MCG INHALER INHALATION SCH (19:21)
[2016-11-19] MEDS: FAMOTIDINE 20 MG TAB PO SCH (20:27)
[2016-11-19 20:38] LABS: Glucose,Whole Blood 236 mg/dL (75-99)
[2016-11-20] MEDS: SODIUM CHLORIDE 0.9% 1,000 ML IV SCH (06:20)
[2016-11-20] MEDS ORDERED: VANCOMYCIN TROUGH DUE 1 EACH MISC MISCELLANE ONE (07:00)
[2016-11-20 07:28] LABS: Glucose,Whole Blood 177 mg/dL (75-99)
[2016-11-20] MEDS: INSULIN LISPRO (humaLOG) 300 UNIT/3 ML VIAL SQ SCH ×2 (07:54→12:09)
[2016-11-20] MEDS: guaiFENesin 600 MG TABLET.ER PO SCH (07:55)
[2016-11-20] MEDS: methylPREDNISolone SOD SUCCI 40 MG/ML 1 ML VIAL IV SCH (07:55)
[2016-11-20] MEDS: HEPARIN SODIUM,PORCINE 5,000 UNIT/ML 1 ML VIAL SQ SCH (07:55)
[2016-11-20] MEDS: IPRATROPIUM-ALBUTEROL 3 ML NEB INHALATION SCH ×2 (08:24→11:29)
[2016-11-20 08:26] VITALS: BP 162/95; RESP 18; TEMP 97.8
[2016-11-20] MEDS: SYMBICORT 160-4.5 MCG INHALER INHALATION SCH (08:35)
--- NOTE | 2016-11-20 11:00 | P.PN ---
Subjective Progress note dated 11/19/2016 26-year-old female with a diagnosis of asthma in by bilateral pneumonia. She has a dense consolidation in the left lung. CAT scan was done. There was no obvious pulmonary embolism. Chest x-ray shows still shows a dense consolidation on the left side. The patient is feeling better. Still short of breath. Still wheezing. Probably needs 1 more day here in the hospital. I did tell her that she should follow-up with one is one of us in the office when she is discharged. She does not currently see a manager java. She been seeing Dr. Zamora for last couple of days. Again clinically improved. Less short of breath. Coughing. Not producing much phlegm. No fever no chills. No chest pain. Progress note dated 11/12/2016 26-year-old female with a history of asthma. She had asthma diagnosis plus pneumonia. Anyway, she is doing much better. Wants be discharged home. CAT scan was done. Chest x-rays, multiple, done. Other than that she's doing better. Less short of breath. Less cough. Less wheezing. Lots less chest congestion. The patient will need to follow-up with somebody for a follow-up chest x-ray. I told her that would be happy to see her in our office. Clinically much improved though. Objective - Vital Signs Vital signs: Vital Signs Temp 97.8 F 11/20/16 07:00 Pulse 76 11/20/16 08:38 Resp 18 11/20/16 07:00 BP 162/95 11/20/16 07:00 Pulse Ox 94 L 11/20/16 07:00 Intake & Output 11/19/16 11/20/16 11/20/16 18:59 06:59 18:59 Intake Total 2550 Balance 2550 Weight 157.652 kg Intake: IV 800 Sodium Chloride 0.9% 1, 800 000 ml @ 100 mls/hr IV . Q10H BELEN Rx#:[id number] Intake, IV Titration 500 Amount Vancomycin 2,250 mg In 500 Sodium Chloride 0.9% 500 ml @ 167 mls/hr IVPB Q8HR BELEN Rx#:[id number] Oral 1250 Other: # Voids 5 3 1 - Exam No acute distress, oriented 3. Sitting at the bedside of another patient. HEENT examination is grossly unremarkable. Mucous membranes are moist. No oral lesions. Neck supple. Full range of motion. No adenopathy. No thyromegaly. Cardiovascular examination reveals regular rhythm rate. S1-S2 normal. No S3- S4 or murmur. Lungs reveal some mild expiratory wheezes. Breath sounds diminished. Slight prolongation. No crackles. Abdomen soft bowel sounds are heard. Extremities are intact. - Labs CBC & Chem 7: 11/16/16 10:40 11/19/16 08:32 Labs: Abnormal Lab Results - Last 24 Hours (Table) 11/19/16 11/19/16 11/19/16 Range/Units 12:14 16:40 20:38 POC Glucose (mg/dL) 230 H 215 H 236 H (75-99) mg/dL 11/20/16 Range/Units 07:18 POC Glucose (mg/dL) 177 H (75-99) mg/dL Microbiology - Last 24 Hours (Table) 11/16/16 19:00 Gram Stain - Final Sputum Sputum Culture - Final Assessment and Plan (1) Multifocal pneumonia Status: Acute Plan: Assessment and plan Multifocal pneumonia. Asthma exacerbation Ongoing tobacco use Morbid obesity Plan We'll review the medications labs and x-rays. Additional recommendations suggestions are forthcoming. Could be discharged today or tomorrow. I'll allow the primary to make the call. A lot will depend on microbiology. We'll check cultures and results. Plan 11/20/2016 The patient's primary lung issues include both multifocal pneumonia as well as asthma exacerbation. Anyway she is doing much better. Would like to be discharged home. I totally will be up to her primary. From the pulmonary standpoint she can be discharged. She does need a follow-up in doctor's office for a follow-up chest x-ray. Time with Patient: Less than 30
[2016-11-20 11:33] LABS: Glucose,Whole Blood 230 mg/dL (75-99)
[2016-11-20 11:40] VITALS: PULSE 76
--- NOTE | 2016-11-20 12:22 | P.DS ---
Providers Date of admission: 11/16/16 12:36 Expected date of discharge: 11/20/16 Attending physician: Ruthy Bundy Consults: 11/16/16 15:07 Consult Physician Routine Consulting Provider: Jose Begum Consult Reason/Comments: pneumonia Do you want consulting provider notified?: Yes [facility] Course: present on admission shortness of breath suspect due to multifocal pneumonia bilaterally more on the left suspect community-acquired Acute exacerbation of mild intermittent bronchial asthma likely due to multifocal pneumonia Morbid obesity BMI 56 Chronic and ongoing tobacco dependency: Counseled to quit Present on admission febrile related to multifocal pneumonia likely community- acquired: Blood and sputum culture negative Elevated d-dimer negative CAT scan of the chest for pulmonary emboli Pre-diabetes recent A1 C 6.4 Acute hypoxic respiratory failure Patient will be discharged home in a stable condition. She will finish Levaquin course orally. She will follow-up with me in the office as scheduled. Given prescription for a nebulizer machine at home. Patient Condition at Discharge: Fair Plan - Discharge Summary New Discharge Prescriptions: Albuterol Inhaler [Ventolin Hfa Inhaler] 1 - 2 puff INHALATION Q6HR PRN #1 inhaler PRN Reason: Shortness Of Breath Albuterol Nebulized [Ventolin Nebulized] 2.5 mg INHALATION Q6H PRN #60 nebu PRN Reason: Shortness Of Breath Beclomethasone Dipropionate [Qvar 40 mcg] 1 puff INHALATION BID #1 inhaler Levofloxacin [Levaquin] 500 mg PO DAILY #5 tab guaiFENesin [Mucinex] 600 mg PO Q12HR #30 tablet.er predniSONE 40 mg PO DAILY #10 tab Discharge Medication List Control (Unknown) 1 tab PO DAILY 11/16/16 [History] Albuterol Inhaler [Ventolin Hfa Inhaler] 1 - 2 puff INHALATION Q6HR PRN #1 inhaler 11/20/16 [Rx] Albuterol Nebulized [Ventolin Nebulized] 2.5 mg INHALATION Q6H PRN #60 nebu [Rx] Beclomethasone Dipropionate [Qvar 40 mcg] 1 puff INHALATION BID #1 inhaler 11/20 [Rx] Levofloxacin [Levaquin] 500 mg PO DAILY #5 tab 03/28/17 [Rx] guaiFENesin [Mucinex] 600 mg PO Q12HR #30 tablet.er 11/20/16 [Rx] predniSONE 40 mg PO DAILY #10 tab 11/20/16 [Rx] Follow up Appointment(s)/Referral(s): Jose Begum MD [STAFF PHYSICIAN] - 1 Week Ruthy Bundy MD [Primary Care Provider] - 12/03/16 1:30 pm Patient Instructions/Handouts: Pneumonia (DC) Activity/Diet/Wound Care/Special Instructions: [facility]-nebulizer: #[phone]
== END 2016-11-20 13:31 | disposition home or self-care (01) | DRG 193 ==
LOC: SUPCPDRO 09:37 → EC 09:37 → 6PED 12:36 → 4MS4W 11-18 22:47
PROVIDERS: ADMIT Internal Medicine; ATTEND Internal Medicine
DX: J18.9 Pneumonia, unspecified organism (principal); J96.01 Acute respiratory failure with hypoxia; Z68.43 Body mass index [BMI] 50.0-59.9, adult; J45.21 Mild intermittent asthma with (acute) exacerbation; E66.01 Morbid (severe) obesity due to excess calories; R73.03 Prediabetes; K76.0 Fatty (change of) liver, not elsewhere classified; F90.9 Attention-deficit hyperactivity disorder, unspecified type; F17.200 Nicotine dependence, unspecified, uncomplicated; R00.0 Tachycardia, unspecified; M54.5 Low back pain; Z86.14 Personal history of Methicillin resistant Staphylococcus aureus infection; Z86.19 Personal history of other infectious and parasitic diseases; Z83.3 Family history of diabetes mellitus; Z86.32 Personal history of gestational diabetes; Z71.6 Tobacco abuse counseling; Z71.3 Dietary counseling and surveillance; Z91.011 Allergy to milk products; Z91.018 Allergy to other foods; Z82.49 Family history of ischemic heart disease and other diseases of the circulatory system; Z79.3 Long term (current) use of hormonal contraceptives; Z79.899 Other long term (current) drug therapy
CPT/HCPCS: 36415; 71020; 71275; 80048; 80053; 80202; 83036; 83605; 84703; 85025; 85379; 87040; 87070; 87205; 87502; 94640; 94645; 94760; 96361; 96365; 96366; 96367; 99285

== ENCOUNTER → 2018-02-24 | Outpatient (CLI) | payer OTHER ==
[2018-02-25 09:04] VITALS: BMI 54.8
== END | disposition home or self-care (01) ==
LOC: DBWHC3 09:52
PROVIDERS: ATTEND Physician Assistant
DX: R73.03 Prediabetes (principal)
CPT/HCPCS: 97802

== ENCOUNTER 2018-08-04 21:35 | Emergency (ER) | payer OTHER ==
[2018-08-04 21:57] VITALS: TEMP 98.6
[2018-08-04 22:57] LABS: Appearance,Urine Clear (Clear); Bilirubin,Urine Negative (Negative); Blood,Urine Negative (Negative); Color,Urine Yellow; Glucose,Urine (UA) Trace (Negative); Hyaline Casts,Urine 1 /lpf (0-2); Ketones,Urine Negative (Negative); Leukocyte Esterase,Urine Trace (Negative); Mucus,Urine Occasional /hpf; Nitrite,Urine Negative (Negative); PH, Urine 7.5 (5.0-8.0); Protein,Urine 1+ (Negative); RBC,Urine 1 /hpf (0-5); Specific Gravity,Urine 1.025 (1.001-1.035); Squamous Epithelial Cell,Urine 4 /hpf (0-4); WBC,Urine 2 /hpf (0-5)
[2018-08-04] MEDS ORDERED: IBUPROFEN 600 MG STARTER PACK 4 TAB BTL PO STA (23:15)
--- NOTE | 2018-08-04 23:16 | ED ---
General Adult HPI - General Chief complaint: Back Pain/Injury Stated complaint: Congested, Back pain Time Seen by Provider: 08/04/18 22:24 Source: patient, family, RN notes reviewed Mode of arrival: ambulatory Limitations: no limitations - History of Present Illness Initial comments: Chief complaint history of present illness a 28-year-old female here with her significant other. The patient has appears to be musculoskeletal strain to her left mid back area. Patient denies any injury. Denies lifting twisting turning or hurting herself. Patient denies increased pain with deep breathing. Mild discomfort increases with palpation. Patient significantly increased discomfort when she turns and stretches to the right less so when she stretches to the left. The patient is 5 foot 6 weighs 345 pounds. - Related Data Home Medications Medication Instructions Recorded Confirmed Albuterol Inhaler [Ventolin Hfa 1 - 2 puff INHALATION RT-Q6H PRN 08/04/18 Inhaler] Ibuprofen [Motrin] 800 mg PO Q8H 08/04/18 08/04/18 Montelukast Chew [Singulair] 5 mg PO DAILY 08/04/18 08/04/18 metFORMIN HCL [Glucophage] 500 mg PO BID 08/04/18 08/04/18 Allergies Allergy/AdvReac Type Severity Reaction Status Date / Time peanut oil Allergy Swelling Verified 08/04/18 22:32 Review of Systems ROS Statement: Those systems with pertinent positive or pertinent negative responses have been documented in the HPI. Review of systems no headache chest pain or shortness of breath. She has right parathoracic area discomfort increases with twisting turning and mild palpation. No evidence of a rash or trauma. Patient denies trauma. No shortness of breath. No change in urine habits or bowel habits. All systems are reviewed. Past medical problems asthma and gestational diabetes. Surgeries section and teeth removal. Family history noncontributory. The patient's ALLERGIES to peanut oil. Former smoker and denies alcohol use ROS Other: All systems not noted in ROS Statement are negative. Past Medical History Past Medical History: Asthma Additional Past Medical History / Comment(s): Gestational Diabetes History of Any Multi-Drug Resistant Organisms: MRSA Date of last positivie culture/infection: 2007 MDRO Source:: r leg Past Surgical History: Section Additional Past Surgical History / Comment(s): Third Molar Removal Past Anesthesia/Blood Transfusion Reactions: No Reported Reaction Past Psychological History: ADD/ADHD Smoking Status: Former smoker Past Alcohol Use History: None Reported Past Drug Use History: None Reported - Past Family History Mother Family Medical History: Diabetes Mellitus Sister(s) Additional Family Medical History / Comment(s): Heart Murmur General Exam - General Exam Comments Initial Comments: General: The patient is awake and alert, is intense with reproducible discomfort to her left flank area. Pain increases when she twists to the right. No known direct injury. Vital signs temp 98.6 pulse 83 respiratory rate 20 pulse ox on percent room air blood pressure 169/98. Eye: Pupils extra-ocular movements are intact; there is normal conjunctiva bilaterally. No signs of icterus. Ears, nose, mouth and throat: There are moist mucous membranes Neck: The neck is supple, there is no tenderness. Cardiovascular: There is a regular rate and rhythm. No murmur, rub or gallop is appreciated. Respiratory: Lungs are clear to auscultation, respirations are non-labored, breath sounds are equal. No wheezes, stridor, rales, or rhonchi. Gastrointestinal: Denies abdominal pain Back: Mild tenderness to the left latissimus dorsi region. Discomfort increases when she twists to the right. Discomfort with mild palpation over the area. No rash noted. Early shingles discussed. Musculoskeletal: Skin is warm and dry and no rashes or lesions are noted. Psychiatric: Cooperative, Limitations: no limitations Course Vital Signs 08/04/18 21:51 Temperature 98.6 F Pulse Rate 83 Respiratory 20 Rate Blood Pressure 169/98 O2 Sat by Pulse 100 Oximetry Medical Decision Making - Medical Decision Making Medical decision making; this 20-year-old female here with what appears to be musculoskeletal strain to her left latissimus dorsi region. Examination finds no evidence of ecchymosis. Twisting to the right increases discomfort. Urine shows no evidence of infection, negative urine test. I reviewed the x-rays of the chest AP and lateral view. No acute bony irregularity. Nonspecific changes of the lung tissue heart size normal limits. Thoracic spine appears to be normal on lateral and AP view. Awaiting radiologist's final impression. Patient lungs advised to use ibuprofen 400 mg every 6 hours for discomfort. Advised to apply either ice or heat whichever feels better to her left latissimus dorsi region. If she notices any change in color per urine or she develops sweats nausea or vomiting to return emergency room follow-up with family physician. - Lab Data Lab Results 08/04/18 08/04/18 Range/Units 22:48 22:48 Urine Color Yellow Urine Appearance Clear (Clear) Urine pH 7.5 (5.0-8.0) Ur Specific [place] 1.025 (1.001-1.035) Urine Protein 1+ H (Negative) Urine Glucose (UA) Trace H (Negative) Urine Ketones Negative (Negative) Urine Blood Negative (Negative) Urine Nitrite Negative (Negative) Urine Bilirubin Negative (Negative) Urine Urobilinogen 2.0 (<2.0) mg/dL Ur Leukocyte Esterase Trace H (Negative) Urine RBC 1 (0-5) /hpf Urine WBC 2 (0-5) /hpf Ur Squamous Epith Cells 4 (0-4) /hpf Hyaline Casts 1 (0-2) /lpf Urine Mucus Occasional H (None) /hpf Urine HCG, Qual Not Detected (Not Detectd) Disposition Clinical Impression: Late effect of musculoskeletal strain Disposition: HOME SELF-CARE Condition: Fair Instructions: Thoracic Back Strain (ED) Is patient prescribed a controlled substance at d/c from ED?: No Referrals: Zander Snow DO [Primary Care Provider] - 1-2 days Time of Disposition: 23:16
--- NOTE | 2018-08-04 23:19 | XR ---
EXAMINATION TYPE: XR chest 2V DATE OF EXAM: 08/04/2018 COMPARISON: 11/30/2016 HISTORY: Back pain and congestion TECHNIQUE: Frontal and lateral views of the chest are obtained. FINDINGS: Heart and mediastinum are normal. Lungs are clear. Diaphragm is normal. Bony thorax appear s normal. IMPRESSION: Normal chest. No change.
[2018-08-04 23:36] VITALS: BP 140/89; PULSE 82; RESP 17
== END 2018-08-04 23:41 | disposition home or self-care (01) ==
LOC: EC 21:35
DX: S29.012S Strain of muscle and tendon of back wall of thorax, sequela (principal); J45.909 Unspecified asthma, uncomplicated; Z87.891 Personal history of nicotine dependence; Z79.1 Long term (current) use of non-steroidal anti-inflammatories (NSAID); Z79.84 Long term (current) use of oral hypoglycemic drugs; Z79.899 Other long term (current) drug therapy; Z91.010 Allergy to peanuts; X50.9XXS Other and unspecified overexertion or strenuous movements or postures, sequela
CPT/HCPCS: 71046; 81001; 81025; 87086; 99283

== ENCOUNTER → 2019-09-23 | Outpatient (CLI) | payer OTHER | END | disposition home or self-care (01) | LOC: LABMAIN 22:22 | PROVIDERS: ATTEND Nurse Practitioner Family | DX: Z53.9 Procedure and treatment not carried out, unspecified reason (principal) ==

== ENCOUNTER 2019-09-25 16:19 | Emergency (ER) | payer OTHER ==
[2019-09-25 16:24] VITALS: TEMP 97.9
[2019-09-25 17:43] LABS: Appearance,Urine Clear (Clear); Bilirubin,Urine Negative (Negative); Blood,Urine Negative (Negative); Color,Urine Yellow; Glucose,Urine (UA) Negative (Negative); Ketones,Urine Negative (Negative); Leukocyte Esterase,Urine Trace (Negative); Mucus,Urine Few /hpf; Nitrite,Urine Negative (Negative); Protein,Urine Trace (Negative); RBC,Urine <1 /hpf (0-5); Specific Gravity,Urine 1.029 (1.001-1.035); Squamous Epithelial Cell,Urine 3 /hpf (0-4); WBC,Urine 3 /hpf (0-5)
--- NOTE | 2019-09-25 18:18 | US ---
EXAMINATION TYPE: Transabdominal DATE OF EXAM: 09/25/2019 6:04 PM COMPARISON: NONE CLINICAL HISTORY: r/o ectopic per OB. No pain, no bleeding. HCG levels didn't double per patient EXAM PERFORMED: Transvaginal (TV) and Transabdominal (TA) EXAM MEASUREMENTS: GESTATIONAL AGE / DATING Physician Established: Not yet established Dates by First Scan: No previous this is first scan Dates by Current Scan for: No pole visuali zed (5 weeks/6 days) EDC: 05/21/2020- gestational sac only MATERNAL ANATOMY Uterus: 8.6 x 4.7 x 5.3 cm Right Ovary: 2.8 x 2.2 x 1.9 cm Left Ovary: 3.3 x 3.0 x 2.0 cm Post CDS / Adnexa: wnl Presence of free fluid: No Presence of corpus luteal cyst: Yes, left ovary measuring 1.7 x 1.1 x 2.1 cm Presence of subchorionic bleed: No GESTATION / SURVEY MSD: 1.1 cm (5 weeks/6 days) Yolk Sac (normal less than 6mm): 2 mm IUP: No pole seen at this time, only possible early gestational sac vs other Date of LMP: 08/16/2019 Beta HcG (if available): 5896 No pole seen at this time, only possible early gestational sac measuring 5weeks/6 days. No free fluid visualized. Corpus luteal cyst left ovary measuring 1.7 x 1.1 x 2.1 cm IMPRESSION: Intrauterine gestational sac and yolk sac evident. Follow-up exam recommended in 14 days to confirm a living fetus. No adnexal mass.
--- NOTE | 2019-09-25 18:53 | ED ---
General Adult HPI - General Chief complaint: Recheck/Abnormal Lab/Rx Stated complaint: 5 wks /pain Time Seen by Provider: 09/25/19 16:51 Source: patient Mode of arrival: ambulatory Limitations: no limitations - History of Present Illness Initial comments: Patient is a 29-year-old, 5 week , female presenting to emergency Department with a chief complaint of ultrasound. Patient reports she is 5 weeks and had hCG levels obtain one week ago. Patient reports they were at 4700. Patient also had an ultrasound performed backbend suggesting an intrauterine gestational sac. Patient had repeat hCG levels today and the levels were 5700. She was contacted by the OB office and advised to come to the ED to obtain an ultrasound to rule out an ectopic. Patient denies any vaginal discharge or bleeding. Denies any abdominal cramping. Denies any nausea or vomiting or diarrhea. Denies any abdominal pain night sweats fevers or chills. No chest pain or shortness of breath. She has no complaints at this time - Related Data Home Medications Medication Instructions Recorded Confirmed Albuterol Inhaler [Ventolin Hfa 1 - 2 puff INHALATION RT-Q6H PRN 08/04/18 08/04/18 Inhaler] Ibuprofen [Motrin] 800 mg PO Q8H 08/04/18 08/04/18 Montelukast Chew [Singulair] 5 mg PO DAILY 08/04/18 08/04/18 metFORMIN HCL [Glucophage] 500 mg PO BID 08/04/18 08/04/18 Allergies Allergy/AdvReac Type Severity Reaction Status Date / Time peanut oil Allergy Swelling Verified 09/25/19 16:25 Review of Systems ROS Statement: Those systems with pertinent positive or pertinent negative responses have been documented in the HPI. ROS Other: All systems not noted in ROS Statement are negative. Past Medical History Past Medical History: Asthma Additional Past Medical History / Comment(s): Gestational Diabetes History of Any Multi-Drug Resistant Organisms: MRSA Date of last positivie culture/infection: 2007 MDRO Source:: r leg Past Surgical History: Section Additional Past Surgical History / Comment(s): Third Molar Removal Past Anesthesia/Blood Transfusion Reactions: No Reported Reaction Past Psychological History: ADD/ADHD Smoking Status: Former smoker Past Alcohol Use History: None Reported Past Drug Use History: None Reported - Past Family History Mother Family Medical History: Diabetes Mellitus Sister(s) Additional Family Medical History / Comment(s): Heart Murmur General Exam Limitations: no limitations General appearance: alert, in no apparent distress, obese Head exam: Present: atraumatic, normocephalic, normal inspection Eye exam: Present: normal appearance Pupils: Present: normal accommodation ENT exam: Present: normal exam, mucous membranes moist Course Vital Signs 09/25/19 09/25/19 16:22 19:08 Temperature 97.9 F 97.9 F Pulse Rate 87 85 Respiratory 20 18 Rate Blood Pressure 164/95 159/87 O2 Sat by Pulse 100 97 Oximetry Medical Decision Making - Medical Decision Making Patient is a 29-year-old female presenting to emergency Department with a chief complaint abdominal ultrasound. Patient had hCG levels of 4700 one week ago. HCG levels were obtained today by the OB and were 5700. OB office suggested a patient who to the ED to obtain an ultrasound to rule out an ectopic . Repeat hCG was at 5700 today. Urine is unremarkable. No signs of asymptomatic bacteriuria. Ultrasound shows an intrauterine gestational and yolk sac but no pole at this time. Repeat ultrasound suggested in 14 days to confirm a viable . No adnexal mass. Patient advised to follow-up back with the OB. Strict return parameters were thoroughly discussed with patient was understanding and agreeable. Case discussed with physician. - Lab Data Lab Results 09/25/19 09/25/19 Range/Units 17:26 17:26 HCG, Quant 5787.1 mIU/mL Urine Color Yellow Urine Appearance Clear (Clear) Urine pH 6.0 (5.0-8.0) Ur Specific [place] 1.029 (1.001-1.035) Urine Protein Trace H (Negative) Urine Glucose (UA) Negative (Negative) Urine Ketones Negative (Negative) Urine Blood Negative (Negative) Urine Nitrite Negative (Negative) Urine Bilirubin Negative (Negative) Urine Urobilinogen 2.0 (<2.0) mg/dL Ur Leukocyte Esterase Trace H (Negative) Urine RBC <1 (0-5) /hpf Urine WBC 3 (0-5) /hpf Ur Squamous Epith Cells 3 (0-4) /hpf Urine Mucus Few H (None) /hpf Disposition Clinical Impression: Elevated serum hCG Disposition: HOME SELF-CARE Condition: Stable Additional Instructions: Please follow up with her OB. Return to emergency department if symptoms worsen. Is patient prescribed a controlled substance at d/c from ED?: No Referrals: Zander Snow DO [Primary Care Provider] - 1-2 days Time of Disposition: 18:52
[2019-09-25 19:08] VITALS: BP 159/87; PULSE 85; RESP 18
== END 2019-09-25 19:08 | disposition home or self-care (01) ==
LOC: EC 16:19
DX: O02.81 Inappropriate change in quantitative human chorionic gonadotropin (hCG) in early pregnancy (principal); O99.511 Diseases of the respiratory system complicating pregnancy, first trimester; J45.909 Unspecified asthma, uncomplicated; O24.415 Gestational diabetes mellitus in pregnancy, controlled by oral hypoglycemic drugs; Z3A.01 Less than 8 weeks gestation of pregnancy; Z79.51 Long term (current) use of inhaled steroids; Z79.1 Long term (current) use of non-steroidal anti-inflammatories (NSAID); Z79.84 Long term (current) use of oral hypoglycemic drugs; Z98.890 Other specified postprocedural states; Z86.14 Personal history of Methicillin resistant Staphylococcus aureus infection; Z87.891 Personal history of nicotine dependence
CPT/HCPCS: 36415; 76801; 76817; 81001; 84702; 99284

== ENCOUNTER → 2019-09-25 | Outpatient (CLI) | payer OTHER | END | disposition home or self-care (01) | LOC: LABWHC1 14:34 | PROVIDERS: ATTEND Obstetrics & Gynecology | DX: N91.2 Amenorrhea, unspecified (principal) | CPT/HCPCS: 36415; 84702 ==

== ENCOUNTER → 2019-10-06 | Outpatient (CLI) | payer OTHER ==
--- NOTE | 2019-10-06 14:46 | US ---
EXAMINATION TYPE: Transabdominal DATE OF EXAM: 10/06/2019 2:07 PM COMPARISON: NONE CLINICAL HISTORY: Z33.1 state, incidental. EXAM PERFORMED: Transvaginal (TV) and Transabdominal (TA) EXAM MEASUREMENTS: GESTATIONAL AGE / DATING Physician Established: Not yet established Dates by LMP: 7weeks 4 days EDC 05/22/2020 Dates by First Scan: No previous this is first scan Dates by Current Scan for: (6 weeks/5 days) EDC: 05-26-20 MATERNAL ANATOMY Gross morbid obesity, technically difficult, limited study. Uterus: 9.7 x 5.7 x 6.2cm Right Ovary: not visualized due to above limitations Left Ovary: not visualized due to above limitations Post CDS / Adnexa: wnl GESTATION / SURVEY CRL: 7mm (6 weeks/5 days) Yolk Sac (normal less than 6mm): Heart Rate: 149 bpm Rhythm: Normal IUP: Viable IUP Nuchal Translucency 10-14wks (normal less than 3mm): Date of LMP: 08/14/20 Beta HcG (if available): IMPRESSION: 1. Single viable intrauterine . Technically difficult study.
== END | disposition home or self-care (01) ==
LOC: RADUSWWP 12:52
PROVIDERS: ATTEND Family Medicine
DX: Z33.1 Pregnant state, incidental (principal); Z32.01 Encounter for pregnancy test, result positive
CPT/HCPCS: 36415; 76801; 76817; 84702

== ENCOUNTER 2020-03-04 11:18 | Outpatient (CLI) | payer OTHER ==
[2020-03-04 12:17] LABS: Basophils # (A) 0.1 k/uL (0-0.2); Basophils % (A) 1 %; Eosinophils # (A) 0.4 k/uL (0-0.7); Eosinophils % (A) 3 %; HGB 12.6 gm/dL (11.4-16.0); Lymphocytes # (A) 2.1 k/uL (1.0-4.8); Lymphocytes % (A) 18 %; MCH 30.9 pg (25.0-35.0); MCHC 33.3 g/dL (31.0-37.0); MCV 92.8 fL (80.0-100.0); Monocytes # (A) 0.7 k/uL (0-1.0); Monocytes % (A) 6 %; Neutrophils % (A) 70 %; Platelet Count 189 k/uL (150-450); RBC 4.09 m/uL (3.80-5.40); RDW 14.3 % (11.5-15.5); WBC 11.4 k/uL (3.8-10.6)
[2020-03-04 12:20] LABS: ALT 257 U/L (4-34); AST 119 U/L (14-36); African American GFR (CKD) >90 (>60 ml/min/1.73 sqM); Anion Gap 4 mmol/L; Blood Urea Nitrogen 5 mg/dL (7-17); Carbon Dioxide 21 mmol/L (22-30); Chloride 110 mmol/L (98-107); Glucose 108 mg/dL (74-99); LDH 415 U/L (313-618); Magnesium 1.6 mg/dL (1.6-2.3); Non-African American GFR(CKD) >90 (>60 ml/min/1.73 sqM); Potassium 4.1 mmol/L (3.5-5.1); Sodium 135 mmol/L (137-145); Uric Acid 2.6 mg/dL (3.7-7.4)
[2020-03-04 12:49] LABS: Appearance,Urine Cloudy (Clear); Bacteria,Urine Few /hpf; Bilirubin,Urine Negative (Negative); Blood,Urine Negative (Negative); Color,Urine Yellow; Glucose,Urine (UA) 4+ (Negative); Hyaline Casts,Urine 1 /lpf (0-2); Ketones,Urine Negative (Negative); Leukocyte Esterase,Urine Trace (Negative); Mucus,Urine Few /hpf; Nitrite,Urine Negative (Negative); PH, Urine 6.5 (5.0-8.0); Protein,Urine Trace (Negative); RBC,Urine 2 /hpf (0-5); Squamous Epithelial Cell,Urine 7 /hpf (0-4); WBC,Urine 7 /hpf (0-5)
[2020-03-04 13:02] LABS: Protein/Creatinine Ratio,Urine 0.155
== END 2020-03-04 13:15 | disposition home or self-care (01) ==
LOC: FBPOP 11:18
PROVIDERS: ATTEND Obstetrics & Gynecology
DX: O24.419 Gestational diabetes mellitus in pregnancy, unspecified control (principal); O13.9 Gestational [pregnancy-induced] hypertension without significant proteinuria, unspecified trimester; Z3A.00 Weeks of gestation of pregnancy not specified
CPT/HCPCS: 59025; 80051; 81001; 82565; 82570; 82947; 83615; 83735; 84100; 84156; 84450; 84460; 84520; 84550; 85025; 87086

== ENCOUNTER 2020-04-09 11:34 | Outpatient (CLI) | payer OTHER ==
[2020-04-09 12:28] LABS: Glucose,Whole Blood 193 mg/dL (75-99)
[2020-04-09 13:18] LABS: Bacteria,Urine Few /hpf; Hyaline Casts,Urine 1 /lpf (0-2); Mucus,Urine Moderate /hpf; RBC,Urine 3 /hpf (0-5); Squamous Epithelial Cell,Urine 4 /hpf (0-4); WBC,Urine 6 /hpf (0-5)
[2020-04-09 13:22] LABS: Protein/Creatinine Ratio,Urine 0.082
[2020-04-09 13:28] LABS: Basophils # (A) 0.1 k/uL (0-0.2); Basophils % (A) 1 %; Eosinophils # (A) 0.4 k/uL (0-0.7); Eosinophils % (A) 3 %; HCT 39.7 % (34.0-46.0); Lymphocytes # (A) 2.4 k/uL (1.0-4.8); Lymphocytes % (A) 17 %; MCH 29.6 pg (25.0-35.0); MCHC 32.8 g/dL (31.0-37.0); MCV 90.3 fL (80.0-100.0); Monocytes # (A) 0.7 k/uL (0-1.0); Monocytes % (A) 5 %; Neutrophils # (A) 9.9 k/uL (1.3-7.7); Neutrophils % (A) 72 %; Platelet Count 223 k/uL (150-450); RDW 14.5 % (11.5-15.5); WBC 13.7 k/uL (3.8-10.6)
[2020-04-09 13:29] LABS: Appearance,Urine Slightly Cloudy (Clear); Bilirubin,Urine Negative (Negative); Blood,Urine Negative (Negative); Color,Urine Amber; Glucose,Urine (UA) 3+ (Negative); Ketones,Urine Negative (Negative); Nitrite,Urine Negative (Negative); Protein,Urine 1+ (Negative)
[2020-04-09 13:30] LABS: Leukocyte Esterase,Urine Negative (Negative)
[2020-04-09 13:38] VITALS: PULSE 97; RESP 17; TEMP 98.1
[2020-04-09 13:42] LABS: ALT 51 U/L (4-34); AST 34 U/L (14-36); African American GFR (CKD) >90 (>60 ml/min/1.73 sqM); Blood Urea Nitrogen 9 mg/dL (7-17); LDH 336 U/L (313-618); Non-African American GFR(CKD) >90 (>60 ml/min/1.73 sqM); Uric Acid 3.5 mg/dL (3.7-7.4)
[2020-04-09 14:13] VITALS: BP 122/62
[2020-04-09 23:55] LABS: Hemoglobin A1C 6.8 % (4.0-6.0)
--- NOTE | 2020-04-21 21:10 | P.MSEPDOC ---
Presenting Problems - Arrival Data Date of Arrival on Unit: 04/09/20 Time of Arrival on Unit: 11:34 Mode of Transport: Ambulatory - Complaint OB-Reason for Admission/Chief Complaint: Other Comment: pt here with c/o headache/pressure prior to arriving, pt denies portillo at this. 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 with current , pt denies blurred vision/epigastric pain, reflexes +2 right arm,. +2 pitting edema noted b/l les, per pt edema has been there for a couple of weeks, pt. also states hx of gdm, last blood sugar was 175 prior to arriving to triage, pt states she forgot to take her labetalol this am, she reports taking 100mg. bid for increased pressures, abd soft and non tender, reports + fm, reports occasional. contractions Medical History - Information : 2 Para: 1 Term: 0 : 1 Abortions: Spontaneous or Elective: 0 Number of Living Children: 1 - Gestational Age Gestational Age by JACKELINE (wks/days): 34 Weeks and 5 Days - History Complications: Chronic HTN, GDM, Smoker Review of Systems - Review of Systems Constitutional: No problems Breast: No problems ENT: No problems Cardiovascular: No problems Respiratory: No problems Gastrointestinal: No problems Genitourinary: No problems Musculoskeletal: No problems Neurological: No problems Skin: No problems Vital Signs - Temperature Temperature: 98.1 F Temperature Source: Oral - Pulse Right Brachial Pulse Rate: 97 Pulse Assessment Method: Automatic Cuff - Respirations Respiratory Rate: 17 Oxygen Delivery Method: Room Air O2 Sat by Pulse Oximetry: 97 - Blood Pressure Right Arm Blood Pressure: 122/62 Blood Pressure Mean: 82 Blood Pressure Source: Automatic Cuff Medical Screen Scoring (Pre) - Cervical Exam Dilation: Exam Deferred Effacement: Exam Deferred Membranes: Intact - Uterine Contractions Frequency: N/A Duration: N/A Intensity: N/A - Maternal Vital Signs Maternal Temperature: N/A Maternal Blood Pressure: Diastolic > 89 = 1 Signs of Preeclampsia: N/A Maternal Respirations: N/A - Maternal Trauma Maternal Trauma: N/A - Assessment - Baby A Baseline FHR: 150 Heart Rate - NICHD Category: Category I (Normal) = 0 NST: Reactive Position: N/A Station: N/A - Total Score - Baby A Total Score - Baby A: 1 - Total Score - Baby B Total Score - Baby B: 1 - Total Score - Baby C Total Score - Baby C: 1 - Level of Risk - Baby A Level of Risk - Baby A: Low (0-5) - Level of Risk - Baby B Level of Risk - Baby B: Low (0-5) - Level of Risk - Baby C Level of Risk - Baby C: Low (0-5) Physician Notification (Pre) - Physician Notified Physician Notified Date: 04/09/20 Physician Notified Time: 12:37 New Order Received: Yes (lab work ordered) Medical Screen Scoring (Post) - Cervical Exam Dilation: Exam Deferred Effacement: Exam Deferred Membranes: Intact - Uterine Contractions Frequency: N/A Duration: N/A Intensity: N/A - Maternal Vital Signs Maternal Temperature: N/A Maternal Blood Pressure: N/A Signs of Preeclampsia: N/A Maternal Respirations: N/A - Pain Assessment Pain Intensity: 0 - Maternal Trauma Maternal Trauma: N/A - Assessment - Baby A Heart Rate: 150 Heart Rate - NICHD Category: Category I (Normal) = 0 NST: Reactive Position: N/A Station: N/A - Total Score Total Score - Baby A: 0 Total Score - Baby B: 0 Total Score - Baby C: 0 - Post Treatment Level of Risk Post Treatment Level of Risk - Baby A: Low (0-5) Post Treatment Level of Risk - Baby B: N/A Post Treatment Level of Risk - Baby C: N/A Physician Notification (Post) - Physician Notified Physician Notified Date: 04/09/20 Physician Notified Time: 13:54 Physician/Practitioner Notified:: Dr Montes Spoke With: Dr Montes New Order Received: Yes (dc home) - Notification Comment Comment: reviewed lab results with dr montes, pt ok to dc home and follow up with [facility] for. increased blood sugar this week, pt states she has appt with [facility] 04-[address] meyers 04-14 Disposition - Disposition OB Disposition: Discharge to home, Written follow up instructions reviewed Discharge Date: 04/09/20 Discharge Time: 14:10 I agree with the RN Medical Screening Exam: Yes Risk & Benefit of care provided described in d/c instruction: Yes Diagnosis: HEADACHE
== END 2020-04-09 14:10 | disposition home or self-care (01) ==
LOC: FBPOP 11:34
PROVIDERS: ATTEND Obstetrics & Gynecology
DX: O99.89 Other specified diseases and conditions complicating pregnancy, childbirth and the puerperium (principal); R51 Headache; Z3A.34 34 weeks gestation of pregnancy
CPT/HCPCS: 59025; 82570; 84156; 82565; 83615; 84450; 84460; 84520; 84550; 85025; 81001; 83036; G0463; 99215

== ENCOUNTER 2020-06-02 16:57 | Emergency (ER) | payer OTHER ==
[2020-06-02 17:23] VITALS: BP 157/90; PULSE 89; TEMP 98.9
[2020-06-02 17:45] VITALS: RESP 16
--- NOTE | 2020-06-02 17:59 | ED ---
URI HPI - General Chief Complaint: Upper Respiratory Infection Stated Complaint: Sinus infection Time Seen by Provider: 06/02/20 17:31 Source: patient Mode of arrival: ambulatory Limitations: no limitations - History of Present Illness Initial Comments: Patient is a 30-year-old female presenting to the emergency Department with complaints of a possible sinus infection. Patient states her symptoms started yesterday with a sore throat, sinus congestion and pressure and has now developed into a dry cough. She states she is a smoker and typically does have a small smoker's cough. She states she did go to her PCPs office today and recommended she start an ALLERGY medication and nasal spray. Patient came into the ER thinking that she needs an antibiotic. She denies any fever, chills, nausea, vomiting. She denies any ear pain, she states her sore throat has improved. Patient states she has a 1-month-old at home and is concerned for passing this on to her. Patient states there is also another member in the household with similar symptoms. She denies any chest pain or shortness of breath. She has no further complaints. Upon arrival to the ER her vitals are stable. - Related Data Previous Rx's Medication Instructions Recorded HYDROcodone/APAP 7.5-325MG [[place] 1 each PO Q6H PRN #12 tab 04/22/20 7.5-325] Ibuprofen [Motrin] 600 mg PO Q6HR PRN #40 tab 04/22/20 Chlorthalidone [Hygroton] 25 mg PO DAILY #30 tab 04/24/20 Insulin Glargine,Hum.rec.anlog 24 unit SQ HS #0 04/24/20 [Basaglar Kwikpen U-100] Insulin Lispro [Admelog] 5 units SQ TID #0 04/24/20 Labetalol [Trandate] 200 mg PO BID #60 tab 04/24/20 Azithromycin [Zithromax Z-pack (6 0 mg PO DIRECTED #1 pack 06/02/20 tabs)] Allergies Allergy/AdvReac Type Severity Reaction Status Date / Time peanut oil Allergy Swelling Verified 06/02/20 17:23 Review of Systems ROS Statement: Those systems with pertinent positive or pertinent negative responses have been documented in the HPI. ROS Other: All systems not noted in ROS Statement are negative. Past Medical History Past Medical History: Asthma Additional Past Medical History / Comment(s): Gestational Diabetes History of Any Multi-Drug Resistant Organisms: MRSA Date of last positivie culture/infection: 2007 MDRO Source:: r leg Past Surgical History: Section Additional Past Surgical History / Comment(s): Third Molar Removal Past Anesthesia/Blood Transfusion Reactions: No Reported Reaction Past Psychological History: ADD/ADHD Smoking Status: Current every day smoker Past Alcohol Use History: None Reported Past Drug Use History: None Reported - Past Family History Mother Family Medical History: Diabetes Mellitus Sister(s) Additional Family Medical History / Comment(s): Heart Murmur General Exam - General Exam Comments Initial Comments: GENERAL: Patient is well-developed and well-nourished. Patient is nontoxic and in no acute distress. HEAD: Atraumatic, normocephalic. EYES: Pupils equal round and reactive to light, extraocular movements intact, sclera anicteric, conjunctiva are normal. Eyelids were unremarkable. ENT: TMs normal, nares patent, oropharynx clear without exudates. Moist mucous membranes. Mild pain to pressure over the frontal and maxillary sinuses. NECK: Normal range of motion, supple without lymphadenopathy or JVD. LUNGS: Unlabored respirations. Breath sounds clear to auscultation bilaterally and equal. No wheezes rales or rhonchi. HEART: Regular rate and rhythm without murmurs, rubs or gallops. ABDOMEN: Soft, nontender, normoactive bowel sounds. No guarding, no rebound. No masses appreciated. : Deferred MUSCULOSKELETAL: Normal extremities with adequate strength and normal range of motion, no pitting or edema. No clubbing or cyanosis. NEUROLOGICAL: Patient is alert and oriented x 3. Motor and sensory are also intact. Cranial nerves II through XII grossly intact. Symmetrical smile. Normal speech, normal gait. PSYCH: Normal mood, normal affect. SKIN: Warm, Dry, normal turgor, no rashes or lesions noted. Limitations: no limitations Course Vital Signs 06/02/20 06/02/20 17:20 17:42 Temperature 98.9 F Pulse Rate 89 Respiratory 18 16 Rate Blood Pressure 157/90 O2 Sat by Pulse 98 Oximetry Medical Decision Making - Medical Decision Making Patient is a 30-year-old female here with sinus congestion 1 day. She was seen at her PCPs office today and was diagnosed with a viral illness, and given nasal spray and ALLERGY medication. Her vital signs are stable. Her exam today is unremarkable. The patient and her symptoms are most likely viral and I do recommend continuing with her ALLERGY medication as well as nasal spray. Patient is very concerned that she is a [id number] at home and is requesting over and over for antibiotics. Patient states her sinus symptoms usually progress into a full sinus infection. I discussed the patient I will give her prescription for azithromycin but I recommended holding it for 3-4 days to see if her symptoms improve on their own. Patient is agreement this plan of care. She can follow up with her PCP. Return parameters were discussed with the patient she verbalized understanding. Disposition Clinical Impression: Sinusitis, Common cold Disposition: HOME SELF-CARE Condition: Stable Instructions (If sedation given, give patient instructions): Upper Respiratory Infection (ED) Additional Instructions: Please return to the Emergency Department if symptoms worsen or any other concerns. May start antibiotics in 3-4 days if symptoms progress. Otherwise continue with our ALLERGY medication and nasal spray. May take Motrin for discomfort. Prescriptions: Azithromycin [Zithromax Z-pack (6 tabs)] 0 mg PO DIRECTED #1 pack Is patient prescribed a controlled substance at d/c from ED?: No Referrals: Zander Sonw DO [Primary Care Provider] - 1-2 days
== END 2020-06-02 18:06 | disposition home or self-care (01) ==
LOC: EC 16:57
DX: J32.9 Chronic sinusitis, unspecified (principal); F17.200 Nicotine dependence, unspecified, uncomplicated; Z91.010 Allergy to peanuts; Z86.14 Personal history of Methicillin resistant Staphylococcus aureus infection
CPT/HCPCS: 99283

== ENCOUNTER → 2020-09-14 | Outpatient (CLI) | payer OTHER ==
--- NOTE | 2020-09-15 10:18 | XR ---
EXAMINATION TYPE: XR wrist complete LT DATE OF EXAM: 09/14/2020 COMPARISON: NONE HISTORY: Pain TECHNIQUE: Four views submitted. FINDINGS: The osseous structures are intact. The joint spaces are preserved and there is no acute fracture or dislocation. IMPRESSION: 1. No definite acute fracture or dislocation if symptoms persist, follow-up study in 7 to 10 days wo uld be suggested
== END | disposition home or self-care (01) ==
LOC: RAD 16:30
PROVIDERS: ATTEND Nurse Practitioner Family
DX: M25.532 Pain in left wrist (principal)

== ENCOUNTER 2021-06-21 20:44 | Emergency (ER) | payer OTHER ==
[2021-06-21 21:45] VITALS: TEMP 97.8
[2021-06-21] MEDS ORDERED: DEXAMETHASONE SOD PHOSPHATE 10 MG/ML 1 ML VIAL IM STA (23:27)
[2021-06-21] MEDS ORDERED: ACETAMINOPHEN TAB 500 MG TAB PO STA (23:27)
[2021-06-21] MEDS ORDERED: KETOROLAC 15 MG/ML 1 ML VIAL IM STA (23:27)
--- NOTE | 2021-06-21 23:28 | ED ---
General Adult HPI - General Chief complaint: ENT Stated complaint: Sore Throat Time Seen by Provider: 06/21/21 22:52 Source: patient Mode of arrival: ambulatory Limitations: no limitations - History of Present Illness Initial comments: 31-year-old female patient presents to the emergency department today for evaluation of sore throat. Patient states that symptoms started earlier today, states it feels like her throat is swollen. Denies difficulty swallowing. Denies unilateral pain. Denies fever or chills. Denies any nasal congestion, drainage, or cough. Contact was sick with sore throat recently. - Related Data Previous Rx's Medication Instructions Recorded HYDROcodone/APAP 7.5-325MG [[place] 1 each PO Q6H PRN #12 tab 04/22/20 7.5-325] Ibuprofen [Motrin] 600 mg PO Q6HR PRN #40 tab 04/22/20 Chlorthalidone [Hygroton] 25 mg PO DAILY #30 tab 04/24/20 Insulin Glargine,Hum.rec.anlog 24 unit SQ HS #0 04/24/20 [Basaglar Kwikpen U-100] Insulin Lispro [Admelog] 5 units SQ TID #0 04/24/20 Labetalol [Trandate] 200 mg PO BID #60 tab 04/24/20 Azithromycin [Zithromax Z-pack (6 0 mg PO DIRECTED #1 pack 06/02/20 tabs)] Allergies Allergy/AdvReac Type Severity Reaction Status Date / Time peanut oil Allergy Swelling Verified 06/21/21 21:41 Review of Systems ROS Statement: Those systems with pertinent positive or pertinent negative responses have been documented in the HPI. ROS Other: All systems not noted in ROS Statement are negative. Past Medical History Past Medical History: Asthma Additional Past Medical History / Comment(s): Gestational Diabetes History of Any Multi-Drug Resistant Organisms: MRSA Date of last positivie culture/infection: 2007 MDRO Source:: r leg Past Surgical History: Section Additional Past Surgical History / Comment(s): Third Molar Removal Past Anesthesia/Blood Transfusion Reactions: No Reported Reaction Past Psychological History: ADD/ADHD Smoking Status: Current every day smoker Past Alcohol Use History: None Reported Past Drug Use History: None Reported - Past Family History Mother Family Medical History: Diabetes Mellitus Sister(s) Additional Family Medical History / Comment(s): Heart Murmur General Exam Limitations: no limitations General appearance: alert, in no apparent distress, other (This is a well- developed, well-nourished adult female patient in no acute distress. Vital signs upon presentation are temperature 97.8F, pulse 107, respirations 20, blood pressure 121/77, pulse ox 97% on room air.) ENT exam: Present: normal oropharynx (Pharyngeal erythema, tonsillar hypertrophy. No exudate noted. No lesions or spots.), mucous membranes moist. Absent: normal exam Neck exam: Present: normal inspection. Absent: tenderness, meningismus, lymphadenopathy Respiratory exam: Present: normal lung sounds bilaterally. Absent: respiratory distress, wheezes, rales, rhonchi, stridor Cardiovascular Exam: Present: regular rate, normal rhythm, normal heart sounds. Absent: systolic murmur, diastolic murmur, rubs, gallop, clicks Neurological exam: Present: alert, oriented X3, CN II-XII intact Psychiatric exam: Present: normal affect, normal mood Skin exam: Present: warm, dry, intact, normal color. Absent: rash Course Vital Signs 06/21/21 06/21/21 21:42 23:41 Temperature 97.8 F Pulse Rate 107 H 78 Respiratory 20 18 Rate Blood Pressure 121/77 128/87 O2 Sat by Pulse 97 95 Oximetry Medical Decision Making - Medical Decision Making 31-year-old female presented for evaluation of sore throat. Physical exam did reveal pharyngeal erythema tonsillar hypertrophy. No exudate no lymphadenopathy. She is afebrile. Chest is negative for strep. We did discuss viral pharyngitis as a cause for her symptoms. She is given a dose of Decadron and Toradol. To be discharged follow-up with her primary care physician for recheck in 1-2 days. Return parameters were discussed in detail. She verbalizes understanding and agrees with this plan. My attending is Dr. Bray. - Lab Data Lab Results 06/21/21 Range/Units 21:47 Group A Strep Rapid Negative (Negative) Disposition Clinical Impression: Viral pharyngitis Disposition: HOME SELF-CARE Condition: Good Instructions (If sedation given, give patient instructions): Pharyngitis (ED) Additional Instructions: Take Tylenol and Motrin alternating for pain control. Increase fluids. Follow- up with the primary care physician for recheck in 1-2 days. Return for any new, worsening, or concerning symptoms. Is patient prescribed a controlled substance at d/c from ED?: No Referrals: Zander Snow DO [Primary Care Provider] - 1-2 days Time of Disposition: 23:28
[2021-06-21 23:42] VITALS: BP 128/87; PULSE 78; RESP 18
== END 2021-06-21 23:42 | disposition home or self-care (01) ==
LOC: EC 20:44
DX: J02.8 Acute pharyngitis due to other specified organisms (principal); J45.909 Unspecified asthma, uncomplicated; F17.200 Nicotine dependence, unspecified, uncomplicated; Z79.1 Long term (current) use of non-steroidal anti-inflammatories (NSAID); Z79.4 Long term (current) use of insulin; Z79.899 Other long term (current) drug therapy; Z83.3 Family history of diabetes mellitus
CPT/HCPCS: 87081; 87430; 99283; 96372 ×2; J1100; J1885

== ENCOUNTER → 2024-01-29 | Outpatient (CLI) | payer OTHER ==
--- NOTE | 2024-01-29 13:31 | XR ---
EXAMINATION TYPE: XR Hip Complete RT DATE OF EXAM: 01/29/2024 12:25 PM CLINICAL INDICATION:Female, 33 years old with history of M25.551 PAIN IN RIGHT HIP; PHH COMPARISON: None. TECHNIQUE: XR Hip Complete RT; hip was examined in the frontal and lateral projections and a AP pelvi s. FINDINGS: No evidence for acute process, joint dislocation or significant soft tissue swelling. Osteo phyte formation of the superior acetabulum of the hip. There is mild joint space narrowing. IMPRESSION: 1. No evidence for acute process. 2. Mild hip osteoarthrosis.
--- NOTE | 2024-01-29 13:32 | XR ---
EXAMINATION TYPE: XR lumbar spine 2 or 3V DATE OF EXAM: 01/29/2024 12:25 PM CLINICAL INDICATION:Female, 33 years old with history of M25.551 PAIN IN RIGHT HIP; PHH COMPARISON: None TECHNIQUE: XR lumbar spine 2 or 3V - Frontal, lateral and coned in L5-S1 lateral views of the spine. FINDINGS: No evidence of any acute osseous pathology. No evidence of loss of vertebral body height i s seen. There is normal alignment of the lumbar vertebral bodies. Scattered disc space narrowing. Mul tilevel marginal osteophyte formation throughout the visualized spine. There is facet joint arthropat hy throughout the spine. Scattered at least mild neural foraminal stenosis. IMPRESSION: 1. No acute fracture. 2. Mild multilevel disc degeneration.
== END | disposition home or self-care (01) ==
LOC: RADXRMAIN 11:53
PROVIDERS: ATTEND Nurse Practitioner Family
DX: M16.11 Unilateral primary osteoarthritis, right hip (principal); M51.36 Other intervertebral disc degeneration, lumbar region
CPT/HCPCS: 72100; 73502